=== PATIENT | female | born 1955 | race Caucasian/White ===

== ENCOUNTER → 2017-06-19 | Outpatient (CLI) | payer OTHER ==
[~2017-06-19] MED LIST: DICL1TAB5 PO
--- NOTE | 2017-06-30 09:30 | MAMMOGRAPHY REPORT ---
BILATERAL DIGITAL DIAGNOSTIC MAMMOGRAM TOMOSYNTHESIS WITH CAD AND TARGETED RIGHT ULTRASOUND: 06/19/20 17 CLINICAL HISTORY: The patient reports a palpable lump and associated pain in the right breast. She r eports a family history of breast cancer in her mother. TECHNIQUE: Breast tomosynthesis in addition to standard 2D mammography was performed. Current study was also evaluated with a Computer Aided Detection (CAD) system. Bilateral CC and MLO 2-D and tomosy nthesis images were obtained. COMPARISON: Comparison is made to exams dated: 02/20/2011 mammogram and 03/26/2012 mammogram - [facility]. BREAST COMPOSITION: There are scattered areas of fibroglandular density in both breasts. FINDINGS: A triangle marker bosch the site of the palpable lump in the right 12:00 breast. No suspic ious masses or other suspicious mammographic abnormalities are seen in this region. The remainder of both breasts are stable compared to prior exams, without suspicious masses, calcifications, or areas of architectural distortion noted. A few scattered bilateral benign-appearing calcifications are ag ain noted. A small benign intramammary lymph node within the left 3:00 breast is stable. Targeted ultrasound was performed of the area of the palpable lump and associated tenderness pointed out by the patient, in the right breast at approximately 1:00, centered around 6 cm from the nipple. Targeted ultrasound was also performed of the right 12:00 breast as well. Sonographically normal ti ssue is seen, without evidence of a mass or other suspicious sonographic abnormality. IMPRESSION: ACR BI-RADS CATEGORY 2: BENIGN, TARGETED ULTRASOUND ACR BI-RADS CATEGORY 2: BENIGN No suspicious mammographic or sonographic abnormality at the site of the palpable right breast lump a nd associated tenderness pointed out by the patient. There is no mammographic or targeted sonographi c evidence of malignancy. Recommend clinical follow-up for right breast lump/pain, and recommend rou aruna bilateral screening mammograms in one year. The patient has been verbally notified of the results. Approximately 10% of breast cancers are not detected with mammography. A negative mammographic report should not delay biopsy if a clinically suggestive mass is present. Brenda Chaney M.D. ah/:06/19/2017 14:12:24 Auriculotherapist: Constance MARCOS(Jaden)(M), [facility] letter sent: Normal 08/04 BI-RADS Code: ACR BI-RADS Category 2: Benign Ultrasound BI-RADS: ACR BI-RADS Category 2: Benign
== END | disposition home or self-care (01) ==
LOC: C.MAMM 13:40
PROVIDERS: ATTEND Nurse Practitioner Family
DX: N63.10 Unspecified lump in the right breast, unspecified quadrant (principal); N64.4 Mastodynia

== ENCOUNTER 2017-09-28 15:28 | Emergency (ER) | payer OTHER ==
[~2017-09-28] VITALS: Ht 165.1 cm; Wt 112.0 kg
[2017-09-28 15:40] VITALS: TEMP 37; Ht 165.1 cm; Wt 112.0 kg
[2017-09-28] MEDS ORDERED: ASPIRIN 81 MG CHEW PO STA (16:40)
[2017-09-28 16:47] VITALS: O2SAT 97
[2017-09-28] MEDS ORDERED: OPTIRAY 320 IV PRN (17:00)
[2017-09-28 17:20] LABS: BASO % 0.3 %; BASO ABS # 0.02 K/uL (0-0.2); EOS % 2.4 %; EOS ABS # 0.19 K/uL (0-0.5); HEMATOCRIT 43.3 % (37-47); HEMOGLOBIN 14.2 g/dL (12.0-16.0); IG# 0.03 K/uL (0.00-0.02); LYMPH % 24.8 %; LYMPH ABS # 1.98 K/uL (1.2-3.4); MEAN CELL VOLUME 91.7 fL (80-100); MEAN CORPUSCULAR HEMOGLOBIN 30.1 pg (25-34); MEAN CORPUSCULAR HGB CONC 32.8 g/dl (32-36); MEAN PLATELET VOLUME 11.2 fL (7.4-10.4); MONO % 6.5 %; MONO ABS # 0.52 K/uL (0.11-0.59); NEUT % 65.6 %; NEUT ABS # 5.26 K/uL (1.4-6.5); PLATELET COUNT 196 K/uL (130-400); RED CELL DISTRIBUTION WIDTH SD 43.8 fL (36.4-46.3)
--- NOTE | 2017-09-28 17:32 | DIAGNOSTIC IMAGING REPORT ---
CHEST ONE VIEW PORTABLE CLINICAL HISTORY: Atypical chest pain COMPARISON STUDY: 12/29/2012 FINDINGS: The heart is at the upper limits of normal in size. Hazy increased density at both lung bases, likely relates to overlying breast tissue. There is no lobar consolidation. There is no overt failure. There are no pleural effusions. Postsurgical changes involve the cervical spine[ IMPRESSION: AP portable study. No acute findings. Electronically signed by: Price Colindres M.D. 09/28/2017 5:30 PM Dictated Date/Time: 09/28/2017 5:30 PM
[2017-09-28 17:40] LABS: BLOOD UREA NITROGEN 21 mg/dl (7-18); CALCIUM 8.7 mg/dl (8.5-10.1); CARBON DIOXIDE 28 mmol/L (21-32); CREATININE 1.01 mg/dl (0.60-1.20); GLUCOSE 86 mg/dl (70-99); POTASSIUM 4.2 mmol/L (3.5-5.1); SODIUM 141 mmol/L (136-145)
--- NOTE | 2017-09-28 18:20 | DIAGNOSTIC IMAGING REPORT ---
ADDENDUM Impression #1 should read as follows: No evidence for pulmonary embolus. Electronically signed by: Forrest Gonzalez M.D. 09/28/2017 7:29 PM Dictated Date/Time: 09/28/2017 7:29 PM ORIGINAL REPORT CHEST CTA for PULMONARY ARTERIES CT DOSE: 677.83 mGy.cm HISTORY: Atypical chest pain. TECHNIQUE: Multiaxial CT images of the chest were performed following the intravenous administration of contrast to evaluate the pulmonary arteries. Maximal intensity projection images were also obtained. A dose lowering technique was utilized adhering to the principles of ALARA. COMPARISON STUDY: None. FINDINGS: The ascending thoracic aorta measures up to 3.9 x 3.6 cm in diameter. No evidence for an aortic dissection. Cholecystectomy. The visualized liver, spleen, adrenal glands, and kidneys are unremarkable. No mediastinal or hilar lymphadenopathy. The heart is normal in size. No pleural or pericardial effusions. Partially visualized cervical spinal fusion hardware. No fractures within the visualized osseous structures. No pneumothorax. The lungs are clear. No filling defects within the pulmonary arteries to suggest pulmonary embolus. IMPRESSION: 1. No evidence for pulmonary blood. 2. Borderline dilated ascending thoracic aorta measuring 3.9 x 3.6 cm in diameter. Electronically signed by: Forrest Gonzalez M.D. 09/28/2017 6:19 PM Dictated Date/Time: 09/28/2017 6:09 PM
[2017-09-28 18:28] LABS: PTT PATIENT 24.3 SECONDS (21.0-31.0)
[2017-09-28] MEDS ORDERED: DICL1GEL12 TD (18:28)
--- NOTE | 2017-09-28 19:30 | DIAGNOSTIC IMAGING REPORT ---
BILATERAL LOWER EXTREMITY VENOUS DOPPLER HISTORY: Elevated d-dimer. Atypical chest pain. COMPARISON STUDY: None. FINDINGS: There is normal compressibility, flow, and augmentation within the bilateral lower extremity deep venous systems. IMPRESSION: No DVT within the right or left lower extremity. Electronically signed by: Forrest Gonzalez M.D. 09/28/2017 7:29 PM Dictated Date/Time: 09/28/2017 7:28 PM
--- NOTE | 2017-09-28 21:05 | EMERGENCY ROOM VISIT NOTE ---
History Report prepared by Hugo: Nano Orozco Under the Supervision of: Dr. Castillo Hurt M.D. First contact with patient: 16:32 Chief Complaint: REFERRED BY DOCTOR Stated Complaint: POSSIBLE BLOOD CLOT, SENT BY DR RODRIGUEZ History of Present Illness The patient is a 62 year old female who presents to the Emergency Room with complaints of intermittent chest pain starting 3 weeks ago. She describes the pain as a spasm that lasts for a couple seconds to 3-4 minutes. The pain has occurred every day. The pain goes away on its own. She does not identify any triggers for the chest pain. The patient was sent to the ED today after "blood work indicated that she might have a blood clot". She currently does not have any chest pain. She has had some cough and left calf pain. She denies any hemoptysis, hematuria, hematochezia, or melena. Her father of an NE at age 51. She denies any recent travel or hormone use. Her blood pressure has been high recently. She has a history of arthritis. Patient states she is currently being seen by a termite control servicer and had a Holter monitor prescribed to her earlier this week. Source of History: patient Onset: 3 weeks ago Position: chest Quality: other (spasm) Timing: intermittent Associated Symptoms: + cough, No melena, No hematochezia, No urinary symptoms Note: Pt reports left calf pain. Review of Systems See HPI for pertinent positives and negatives. A total of ten systems were reviewed and were otherwise negative. Past Medical & Surgical Medical Problems: (1) Arthritis Family History NE (myocardial infarction) Social History Smoking Status: Never Smoker Marital Status: Occupation Status: disabled Current/Historical Medications Scheduled PRN Diclofenac Sodium (Topical) (Voltaren 1% Top Gel), 1 APPLN TD BID PRN for FLARE- [employer] Allergies Coded Allergies: No Known Allergies (Verified , 04/04/15) Physical Exam Vital Signs Date Time Temp Pulse Resp B/P (MAP) Pulse Ox O2 Delivery O2 Flow Rate FiO2 09/28/17 21:10 58 18 168/86 98 09/28/17 21:07 56 18 168/68 96 Room Air 09/28/17 19:31 58 20 154/79 97 Room Air 09/28/17 17:47 57 18 157/101 100 Room Air 09/28/17 17:11 58 16 173/92 99 Room Air 09/28/17 16:47 97 Room Air 09/28/17 16:39 58 09/28/17 16:36 98 Room Air 09/28/17 15:40 37.0 63 20 188/123 97 Room Air Physical Exam Physical Exam GENERAL: She is oriented to person, place, and time. She appears well- developed and well-nourished. She does not appear distressed. ____ HENT: Exam performed. Head: Normocephalic and atraumatic. Right Ear: External ear normal. No mastoid tenderness. Left Ear: External ear normal. No mastoid tenderness. Mouth/Throat: The oropharynx is clear and moist. No trismus in the jaw. No dental abscesses or uvula swelling. No oropharyngeal exudate or tonsillar abscesses. ____ EYES: Conjunctivae and EOM are normal. Pupils are equal, round, and reactive to light. Right eye exhibits no discharge. Left eye exhibits no discharge. No scleral icterus. ____ NECK: Normal range of motion. Neck supple. No JVD present. No spinous process tenderness present. No carotid bruit present. No rigidity. No tracheal deviation and normal range of motion present. No Brudzinski's sign and no Kernig 's sign noted. ____ CV: Normal rate, regular rhythm, normal heart sounds and intact distal pulses. There is no peripheral edema. Palpable radial pulses bue. Holter monitor in place. ____ PULM/CHEST: Effort normal and breath sounds normal. No respiratory distress. No stridor. She has no wheezes. She has no rales. Chest Wall: She exhibits no tenderness. ____ ABD: The abdomen is soft. Bowel sounds are normal. She has no distension. No mass is present. There is no tenderness. There is no rebound, no guarding, no Paz's sign and no tenderness at McBurney's point. Rovsig negative MUSC/SKEL: Normal range of motion. There is no peripheral edema or deformity. Pain on palpation of her left calf posteriorly and popliteal area. LYMPH: No cervical adenopathy. ____ NEURO: She is alert and oriented to person, place, and time. She has normal strength. No cranial nerve deficit or sensory deficit. Coordination and gait normal. GCS eye subscore is 4. GCS verbal subscore is 5. GCS motor subscore is 6. Cerebellar tests wnl. ____ SKIN: Skin is warm and dry. She is not diaphoretic. ____ PSYCH: She has a normal mood and affect. Her behavior is normal. Judgment and thought content normal. ____ Medical Decision & Procedures ER Provider Diagnostic Interpretation: Radiology results as stated below per my review and radiologist interpretation: CHEST ONE VIEW PORTABLE CLINICAL HISTORY: Atypical chest pain COMPARISON STUDY: 12/29/2012 FINDINGS: The heart is at the upper limits of normal in size. Hazy increased density at both lung bases, likely relates to overlying breast tissue. There is no lobar consolidation. There is no overt failure. There are no pleural effusions. Postsurgical changes involve the cervical spine[ IMPRESSION: AP portable study. No acute findings. Electronically signed by: Price Colindres M.D. 09/28/2017 5:30 PM Dictated Date/Time: 09/28/2017 5:30 PM ADDENDUM Impression #1 should read as follows: No evidence for pulmonary embolus. Electronically signed by: Forrest Gonzalez M.D. 09/28/2017 7:29 PM Dictated Date/Time: 09/28/2017 7:29 PM ORIGINAL REPORT CHEST CTA for PULMONARY ARTERIES CT DOSE: 677.83 mGy.cm HISTORY: Atypical chest pain. TECHNIQUE: Multiaxial CT images of the chest were performed following the intravenous administration of contrast to evaluate the pulmonary arteries. Maximal intensity projection images were also obtained. A dose lowering technique was utilized adhering to the principles of ALARA. COMPARISON STUDY: None. FINDINGS: The ascending thoracic aorta measures up to 3.9 x 3.6 cm in diameter. No evidence for an aortic dissection. Cholecystectomy. The visualized liver, spleen, adrenal glands, and kidneys are unremarkable. No mediastinal or hilar lymphadenopathy. The heart is normal in size. No pleural or pericardial effusions. Partially visualized cervical spinal fusion hardware. No fractures within the visualized osseous structures. No pneumothorax. The lungs are clear. No filling defects within the pulmonary arteries to suggest pulmonary embolus. IMPRESSION: 1. No evidence for pulmonary blood. 2. Borderline dilated ascending thoracic aorta measuring 3.9 x 3.6 cm in diameter. Electronically signed by: Forrest Gonzalez M.D. 09/28/2017 6:19 PM Dictated Date/Time: 09/28/2017 6:09 PM BILATERAL LOWER EXTREMITY VENOUS DOPPLER HISTORY: Elevated d-dimer. Atypical chest pain. COMPARISON STUDY: None. FINDINGS: There is normal compressibility, flow, and augmentation within the bilateral lower extremity deep venous systems. IMPRESSION: No DVT within the right or left lower extremity. Electronically signed by: Forrest Gonzalez M.D. 09/28/2017 7:29 PM Dictated Date/Time: 09/28/2017 7:28 PM Laboratory Results 09/28/17 16:55 Red Blood Count 4.72, Mean Corpuscular Volume 91.7, Mean Corpuscular Hemoglobin 30.1, Mean Corpuscular Hemoglobin Concent 32.8, Mean Platelet Volume 11.2, Neutrophils (%) (Auto) 65.6, Lymphocytes (%) (Auto) 24.8, Monocytes (%) (Auto) 6.5, Eosinophils (%) (Auto) 2.4, Basophils (%) (Auto) 0.3, Neutrophils # (Auto) 5.26, Lymphocytes # (Auto) 1.98, Monocytes # (Auto) 0.52, Eosinophils # (Auto) 0.19, Basophils # (Auto) 0.02 09/28/17 16:55 Test 09/28/17 16:55 09/28/17 17:42 09/28/17 19:53 White Blood Count 8.00 K/uL (4.8-10.8) Red Blood Count 4.72 M/uL (4.2-5.4) Hemoglobin 14.2 g/dL (12.0-16.0) Hematocrit 43.3 % (37-47) Mean Corpuscular Volume 91.7 fL (80-100) Mean Corpuscular Hemoglobin 30.1 pg (25-34) Mean Corpuscular Hemoglobin Concent 32.8 g/dl (32-36) Platelet Count 196 K/uL (130-400) Mean Platelet Volume 11.2 fL (7.4-10.4) Neutrophils (%) (Auto) 65.6 % Lymphocytes (%) (Auto) 24.8 % Monocytes (%) (Auto) 6.5 % Eosinophils (%) (Auto) 2.4 % Basophils (%) (Auto) 0.3 % Neutrophils # (Auto) 5.26 K/uL (1.4-6.5) Lymphocytes # (Auto) 1.98 K/uL (1.2-3.4) Monocytes # (Auto) 0.52 K/uL (0.11-0.59) Eosinophils # (Auto) 0.19 K/uL (0-0.5) Basophils # (Auto) 0.02 K/uL (0-0.2) RDW Standard Deviation 43.8 fL (36.4-46.3) RDW Coefficient of Variation 13.0 % (11.5-14.5) Immature Granulocyte % (Auto) 0.4 % Immature Granulocyte # (Auto) 0.03 K/uL (0.00-0.02) Anion Gap 5.0 mmol/L (3-11) Est Creatinine Clear Calc Drug Dose 70.2 ml/min Estimated GFR () 68.1 Estimated GFR (Non- 58.8 BUN/Creatinine Ratio 20.3 (10-20) Calcium Level 8.7 mg/dl (8.5-10.1) Chemistry Specimen Hemolysis Prothrombin Time 10.2 SECONDS (9.0-12.0) Prothromb Time International Ratio 1.0 (0.9-1.1) Activated Partial Thromboplast Time 24.3 SECONDS (21.0-31.0) Partial Thromboplastin Ratio 0.9 Troponin I < 0.015 ng/ml (0-0.045) Laboratory results reviewed by me Medications Administered Medications (Trade) Dose Ordered Sig/Stuart Route Start Time Stop Time Status Last Admin Dose Admin Aspirin (Aspirin Chew) 324 mg NOW STAT PO 09/28/17 16:40 09/28/17 16:42 DC 09/28/17 17:11 324 MG ECG Per My Interpretation Indication: chest pain Rate (beats per minute): 96 Rhythm: sinus rhythm Findings: other (IN, QRS, QTc wnl, baseline wander, no ST elevation or ST depression) ED Course 163: The patient was evaluated in room A11B. A complete history and physical exam was performed. 1945: VSS. Pt not reporting any chest pain. CT and US wnl. First troponin wnl. I explained to the family we will repeat troponin and if wnl discharge home for follow up with PCP. Pt and family at bedside in agreement with the plan. 2044: DISCHARGE - Plan of care discussed with family and questions answered. The family was given both verbal and printed discharge instructions. The family verbalized understanding and ability to comply. The family is to seek outpatient follow up as noted in the discharge instructions. The family verbalized understanding and ability to comply. The family is discharged in stable condition. The family was instructed to return for worsening symptoms. Medical Decision VSS. Pt not reporting any chest pain. CT and US wnl. Serial troponin wnl. I explained to the family we will repeat troponin and if wnl discharge home for follow up with PCP. Pt and family at bedside in agreement with the plan. Medication Reconcilliation Current Medication List: was personally reviewed by me Blood Pressure Screening Patient's blood pressure: Elevated blood pressure Blood pressure disposition: Referred to PCP Impression Primary Impression: Chest pain Scribe Attestation The scribe's documentation has been prepared under my direction and personally reviewed by me in its entirety. I confirm that the note above accurately reflects all work, treatment, procedures, and medical decision making performed by me. The chart was completed utilizing [employer] Speech voice recognition software. Grammatical errors, random word insertions, pronoun errors, and incomplete sentences are an occasional consequence of this system due to software limitations, ambient noise, and hardware issues. Any formal questions or concerns about the content, text, or information contained within the body of this dictation should be directly addressed to the physician for clarification. Departure Information Dispostion Home / Self-Care Referrals Alma Christian (PCP) Forms HOME CARE DOCUMENTATION FORM, IMPORTANT VISIT INFORMATION, WORK / SCHOOL INSTRUCTIONS Patient Instructions Chest Pain - [facility], [facility] Problem Qualifiers Primary Impression: Chest pain Chest pain type: unspecified Qualified Codes: R07.9 - Chest pain, unspecified
[2017-09-28 21:10] VITALS: BP 168/86; PULSE 58; O2SAT 98
== END 2017-09-28 21:12 | disposition home or self-care (01) ==
LOC: C.EDB 15:30 → C.EDA 21:12
DX: R07.9 Chest pain, unspecified (principal); M19.90 Unspecified osteoarthritis, unspecified site; Z82.49 Family history of ischemic heart disease and other diseases of the circulatory system

== ENCOUNTER 2017-12-09 11:52 | Observation (INO) | payer OTHER ==
[~2017-12-09] VITALS: Ht 165.1 cm; Wt 107.7 kg
[~2017-12-09 11:52] MED LIST changes: +DICL1GEL12 TD; -DICL1TAB5 PO
[2017-12-09] MEDS ORDERED: ASPIRIN 81 MG CHEW PO STA (12:05)
[2017-12-09] MEDS ORDERED: NITROGLYCERIN 0.4 MG SL PER TAB CHARGE SL PRN ×2 (12:15→14:45)
[2017-12-09 12:35] LABS: BASO % 0.3 %; BASO ABS # 0.02 K/uL (0-0.2); EOS % 1.8 %; EOS ABS # 0.14 K/uL (0-0.5); HEMATOCRIT 42.7 % (37-47); HEMOGLOBIN 14.3 g/dL (12.0-16.0); IG# 0.01 K/uL (0.00-0.02); LYMPH % 17.8 %; LYMPH ABS # 1.38 K/uL (1.2-3.4); MEAN CELL VOLUME 90.3 fL (80-100); MEAN CORPUSCULAR HEMOGLOBIN 30.2 pg (25-34); MEAN CORPUSCULAR HGB CONC 33.5 g/dl (32-36); MEAN PLATELET VOLUME 10.7 fL (7.4-10.4); MONO % 5.3 %; MONO ABS # 0.41 K/uL (0.11-0.59); NEUT % 74.7 %; NEUT ABS # 5.78 K/uL (1.4-6.5); PLATELET COUNT 184 K/uL (130-400); RED CELL DISTRIBUTION WIDTH SD 42.8 fL (36.4-46.3); WHITE BLOOD COUNT 7.74 K/uL (4.8-10.8)
--- NOTE | 2017-12-09 12:52 | DIAGNOSTIC IMAGING REPORT ---
CHEST ONE VIEW PORTABLE HISTORY: Atypical chest pain. COMPARISON: Chest 09/28/2017. FINDINGS: The heart remains mildly enlarged. The lungs are clear. No pleural effusions. No pneumothorax. Cervical spinal fusion hardware is noted. IMPRESSION: Stable mild cardiomegaly. No acute process within the chest. Electronically signed by: Forrest Gonzalez M.D. 12/09/2017 12:50 PM Dictated Date/Time: 12/09/2017 12:49 PM
[2017-12-09 12:55] LABS: BLOOD UREA NITROGEN 18 mg/dl (7-18); CALCIUM 9.2 mg/dl (8.5-10.1); CARBON DIOXIDE 26 mmol/L (21-32); CREATININE 0.99 mg/dl (0.60-1.20); GLUCOSE 113 mg/dl (70-99); POTASSIUM 3.9 mmol/L (3.5-5.1); SODIUM 141 mmol/L (136-145)
[2017-12-09] MEDS ORDERED: FRS/40 PO (13:11)
[2017-12-09] MEDS ORDERED: LSN5 PO (13:11)
[2017-12-09] MEDS ORDERED: ACETAMINOPHEN 325 MG TAB PO PRN (14:45)
[2017-12-09] MEDS ORDERED: POLYETHYLENE (MIRALAX) 17 GM PACK PO PRN (14:45)
[2017-12-09] MEDS ORDERED: MAGNESIUM HYDROXIDE SUSP 30 ML UDC PO PRN (14:45)
[2017-12-09] MEDS ORDERED: ONDANSETRON INJ 2 MG/ML 2 ML VIAL IV PRN (14:45)
[2017-12-09] MEDS ORDERED: ALUMINUM/MAGNESIUM/SIMETH (MAALOX MAX) 30 ML UDC PO PRN (14:45)
--- NOTE | 2017-12-09 14:47 | History and Physical ---
History & Physical Date & Time of Service: December 09, 2017 at 14:43 Chief Complaint: Chest Pain Primary Care Physician: Alma Christian History of Present Illness Source: patient Ms. Ann is a 62 y/o female with PMHx of HTN who presents to the ED c/o chest pain. Patient reports that she was living some heavy objects this morning at work but felt fine at that time. She states she was prepping food/drinks while working at [employer] when she developed mid-sternal pain. She states this pain has occurred before and comes and goes. Today the pain was more constant and she had associated numbness down the L arm, diaphoresis, and SOB. She states she never had these other symptoms with her previous CP. She states the pain resolved with NTG given in ED but is now beginning to come back. She states the pain is a heaviness like someone is pushing on her chest. She denies personal H/ O heart issues but was told she had a "leaky valve" diagnosed on echo by Dr. Coffman approx. 2 months ago. She states she had this done for "fluttering" in her chest. She states she never had a stress test before. She has a history of HTN that she has tried multiple medications for that were hurting her kidneys. She states this was a water pill/BP medication. She is now on Lisinopril and Lasix. She was a previous smoker but not currently. She thinks her cholesterol is good. Her father of a [facility] at age 53 suddenly. Her mother at 79 from an [facility] and had a history of CABG. Past Medical/Surgical History (1) Arthritis (2) HTN (hypertension) (3) "Leaky Valve" (4) S/P Cholecystectomy (5) S/P x 2 (6) S/P Appendectomy (7) S/P Cervical Disc Surgery Family History [facility] (my[facility] infarction) FATHER MOTHER Social History Smoking Status: Former Smoker Marital Status: Occupational Status: employed Immunizations History of Influenza Vaccine: N/A History of Tetanus Vaccine?: Unknown History of Pneumococcal: Yes History of Hepatitis B Vaccine: Unknown Allergies Coded Allergies: No Known Allergies (Verified , 12/09/17) Home Medications Scheduled Furosemide (Lasix), 40 MG PO DAILY Lisinopril (Lisinopril), 5 MG PO DAILY Scheduled PRN Diclofenac Sodium (Topical) (Voltaren 1% Top Gel), 1 APPLN TD BID PRN for FLARE- [employer] Review of Systems Constitutional: + sweats, No fever, No chills ENT: No nasal symptoms, No sore throat Respiratory: + shortness of breath (resolved), No cough Cardiovascular: + chest pain (resolved - wax and wanes), No orthopnea Abdomen: No pain, No nausea, No vomiting, No diarrhea, No constipation Musculoskeletal: No swelling, No calf pain Genitourinary - Female: No dysuria Hematologic / Lymphatic: No abnormal bleeding/bruising Integumentary: No rash Physical Exam Vital Signs Date Time Temp Pulse Resp B/P (MAP) Pulse Ox O2 Delivery O2 Flow Rate FiO2 12/09/17 14:00 52 18 161/74 99 Room Air 12/09/17 13:40 99 12/09/17 13:06 54 18 141/69 97 Room Air 12/09/17 13:00 141/69 12/09/17 12:40 66 17 142/80 96 12/09/17 12:35 66 18 142/80 97 Room Air 12/09/17 12:30 61 18 160/92 98 Room Air 12/09/17 12:23 97 Room Air 12/09/17 12:23 54 12/09/17 12:22 97 Room Air 12/09/17 12:01 142/69 12/09/17 11:53 36.6 62 18 166/84 95 Room Air General Appearance: WD/WN, no apparent distress Head: normocephalic, atraumatic Eyes: sclerae normal ENT: hearing grossly normal Neck: supple, no JVD, trachea midline Respiratory/Chest: lungs clear, normal breath sounds, no respiratory distress, no accessory muscle use, + pertinent finding (no tenderness to palpation of anterior chest wall) Cardiovascular: regular rate, rhythm, no gallop, no murmur Abdomen/GI: normal bowel sounds, non tender, soft Back: normal inspection Extremities/Musculoskelatal: no pedal edema Neurologic/Psych: alert, oriented x 3 Skin: normal color, warm/dry Diagnostics Laboratory Results Results Past 24 Hours Test 12/09/17 12:17 Range/Units White Blood Count 7.74 4.8-10.8 K/uL Red Blood Count 4.73 4.2-5.4 M/uL Hemoglobin 14.3 12.0-16.0 g/dL Hematocrit 42.7 37-47 % Mean Corpuscular Volume 90.3 80-100 fL Mean Corpuscular Hemoglobin 30.2 25-34 pg Mean Corpuscular Hemoglobin Concent 33.5 32-36 g/dl Platelet Count 184 130-400 K/uL Mean Platelet Volume 10.7 7.4-10.4 fL Neutrophils (%) (Auto) 74.7 % Lymphocytes (%) (Auto) 17.8 % Monocytes (%) (Auto) 5.3 % Eosinophils (%) (Auto) 1.8 % Basophils (%) (Auto) 0.3 % Neutrophils # (Auto) 5.78 1.4-6.5 K/uL Lymphocytes # (Auto) 1.38 1.2-3.4 K/uL Monocytes # (Auto) 0.41 0.11-0.59 K/uL Eosinophils # (Auto) 0.14 0-0.5 K/uL Basophils # (Auto) 0.02 0-0.2 K/uL RDW Standard Deviation 42.8 36.4-46.3 fL RDW Coefficient of Variation 13.0 11.5-14.5 % Immature Granulocyte % (Auto) 0.1 % Immature Granulocyte # (Auto) 0.01 0.00-0.02 K/uL Sodium Level 141 136-145 mmol/L Potassium Level 3.9 3.5-5.1 mmol/L Chloride Level 111 98-107 mmol/L Carbon Dioxide Level 26 21-32 mmol/L Anion Gap 4.0 3-11 mmol/L Blood Urea Nitrogen 18 7-18 mg/dl Creatinine 0.99 0.60-1.20 mg/dl Est Creatinine Clear Calc Drug Dose 70.4 ml/min Estimated GFR () 69.8 Estimated GFR (Non- 60.2 BUN/Creatinine Ratio 18.3 10-20 Random Glucose 113 70-99 mg/dl Calcium Level 9.2 8.5-10.1 mg/dl Troponin I < 0.015 0-0.045 ng/ml Diagnostic Radiology CHEST ONE VIEW PORTABLE HISTORY: Atypical chest pain. COMPARISON: Chest 09/28/2017. FINDINGS: The heart remains mildly enlarged. The lungs are clear. No pleural effusions. No pneumothorax. Cervical spinal fusion hardware is noted. IMPRESSION: Stable mild cardiomegaly. No acute process within the chest. EKG Sinus bradycardia Minimal voltage criteria for LVH, may be normal variant Borderline ECG When compared with ECG of 28-SEP-2017 15:42, No significant change was found Confirmed by NILAL LANDAVERDE ([id number]) on 12/09/2017 1:11:02 PM Impression Assessment and Plan Ms. Ann is a 62 y/o female with PMHx of HTN who presents to the ED c/o chest pain. Chest Pain: - Currently CP free after administration of NTG; pain was not reproducible on examination - risk factors of previous smoker, obesity, HTN, + family history - Admit to telemetry for rhythm monitoring and serial cardiac enzymes - initial trops negative - Obtain lipid panel in AM - ASA 81 mg daily; NTG SL PRN - Dobutamin stress test - patient feels she could not do treadmill testing due to B/L knee replacement (1 R and 2 L) HTN: Uncontrolled - BP largely in 140s/80 but was up in the 180s during examination - could be situational given her report that they are better at home - States they have tried a couple BP meds for her and the "hurt her kidneys" - likely had some sort of HCTZ/ACEI-ARB combo prior - Continue Lasix 40 mg daily and Lisinopril DVT Prophylaxis: Heparin Code Status: FULL RESUSCITATION Disposition: Likely home tomorrow Resident Physician Supervision Note: I was present with Noreen CALLE during the history and exam. I discussed the case with the resident and agree with the findings and plan as documented in the note. Any exceptions or clarifications are listed here: 62 y/o F Hx HTN, obese, possibly mitral regurge - presenting with intermittent central CP. Denies previous history of heart disease. OE AAO x 3 S1,2 R CTAB NT, ND No CCE P: Risk factors of HTN, weight, age and a strong family Hx are present Pt will be evaluated for CAD - a stress test will be scheduled following serial troponins - a tredmill echo may be adequate She is asymptomatic on admission - initial trop and EKG do not support active ischemia Documented By: Hector Díaz Resuscitation Status VTE Prophylaxis Will order VTE Prophylaxis: Yes
[2017-12-09 15:25] VITALS: O2SAT 99
[2017-12-09 15:37] VITALS: BP 150/86; PULSE 56; TEMP 36.7; Ht 165.1 cm; Wt 107.7 kg
[2017-12-09 15:47] VITALS: BP 105/57; PULSE 105; TEMP 36.6; O2SAT 95
[2017-12-09 16:00] VITALS: BP 150/86; PULSE 56; TEMP 36.7; O2SAT 95
--- NOTE | 2017-12-09 16:08 | EMERGENCY ROOM VISIT NOTE ---
History Report prepared by Hugo: Gino Masters Under the Supervision of: Dr. Kirk Gilliam D.O. First contact with patient: 11:58 Chief Complaint: CHEST PAIN Stated Complaint: CHEST PAIN History of Present Illness The patient is a 62 year old female who presents to the Emergency Room with complaints of constant chest pain beginning one hour ago. She describes her pain as a feeling of "pressure". The patient also complains of left arm numbness , diaphoresis, and SOB. She has a history of similar pain, but no source was identified at the time. Her pain is currently present. The patient was at work at [employer] when her pain began prepping drinks. She notes that she was lifting and moving some heavy objects at work today. She has had no recent stress tests. Pt denies headache, change in vision, fevers, nausea, vomiting, diarrhea , pain with urination, and melena. She has no known problems with her aorta. Source of History: patient Onset: One hour ago Position: chest Quality: pressure Timing: constant Associated Symptoms: + diaphoresis, + SOB, + numbness (left arm), No fevers , No headache, No nausea, No vomiting, No melena, No diarrhea, No urinary symptoms Review of Systems See HPI for pertinent positives & negatives. A total of 10 systems reviewed and were otherwise negative. Past Medical & Surgical Medical Problems: (1) Arthritis (2) Chest Pain (3) HTN (hypertension) Family History [place] (myocardial infarction) Social History Smoking Status: Former Smoker Marital Status: Occupation Status: disabled Current/Historical Medications Scheduled Furosemide (Lasix), 40 MG PO DAILY Lisinopril (Lisinopril), 5 MG PO DAILY Scheduled PRN Diclofenac Sodium (Topical) (Voltaren 1% Top Gel), 1 APPLN TD BID PRN for FLARE- UPS Allergies Coded Allergies: No Known Allergies (Verified , 12/09/17) Physical Exam Vital Signs Date Time Temp Pulse Resp B/P (MAP) Pulse Ox O2 Delivery O2 Flow Rate FiO2 12/09/17 14:00 52 18 161/74 99 Room Air 12/09/17 13:40 99 12/09/17 13:06 54 18 141/69 97 Room Air 12/09/17 13:00 141/69 12/09/17 12:40 66 17 142/80 96 12/09/17 12:35 66 18 142/80 97 Room Air 12/09/17 12:30 61 18 160/92 98 Room Air 12/09/17 12:23 97 Room Air 12/09/17 12:23 54 12/09/17 12:22 97 Room Air 12/09/17 12:01 142/69 12/09/17 11:53 36.6 62 18 166/84 95 Room Air Physical Exam GENERAL: Sitting up in bed, disheveled, no distress, non-toxic EYE EXAM: normal conjunctiva. OROPHARYNX: no exudate, no erythema, lips, buccal mucosa, and tongue normal and mucous membranes are moist NECK: supple, no nuchal rigidity, no adenopathy, non-tender LUNGS: Clear to auscultation. Normal chest wall mechanics HEART: no murmurs, S1 normal and S2 normal ABDOMEN: abdomen soft, non-tender, normo-active bowel sounds, no masses, no rebound or guarding. BACK: Back is symmetrical on inspection and there is no deformity, no midline tenderness, no CVA tenderness. SKIN: no rashes and no bruising UPPER EXTREMITIES: upper extremities are grossly normal. LOWER EXTREMITIES: No pitting edema. NEURO EXAM: Normal sensorium, cranial nerves II-XII grossly intact, normal speech, no gross weakness of arms, no gross weakness of legs. Medical Decision & Procedures ER Provider Diagnostic Interpretation: Radiology results as stated below per my review and the radiologist's interpretation: CHEST ONE VIEW PORTABLE FINDINGS: The heart remains mildly enlarged. The lungs are clear. No pleural effusions. No pneumothorax. Cervical spinal fusion hardware is noted. IMPRESSION: Stable mild cardiomegaly. No acute process within the chest. Electronically signed by: Forrest Gonzalez M.D. 12/09/2017 12:50 PM Laboratory Results 12/09/17 12:17 Red Blood Count 4.73, Mean Corpuscular Volume 90.3, Mean Corpuscular Hemoglobin 30.2, Mean Corpuscular Hemoglobin Concent 33.5, Mean Platelet Volume 10.7, Neutrophils (%) (Auto) 74.7, Lymphocytes (%) (Auto) 17.8, Monocytes (%) (Auto) 5.3, Eosinophils (%) (Auto) 1.8, Basophils (%) (Auto) 0.3, Neutrophils # (Auto) 5.78, Lymphocytes # (Auto) 1.38, Monocytes # (Auto) 0.41, Eosinophils # (Auto) 0.14, Basophils # (Auto) 0.02 12/09/17 12:17 Test 12/09/17 12:17 White Blood Count 7.74 K/uL (4.8-10.8) Red Blood Count 4.73 M/uL (4.2-5.4) Hemoglobin 14.3 g/dL (12.0-16.0) Hematocrit 42.7 % (37-47) Mean Corpuscular Volume 90.3 fL (80-100) Mean Corpuscular Hemoglobin 30.2 pg (25-34) Mean Corpuscular Hemoglobin Concent 33.5 g/dl (32-36) Platelet Count 184 K/uL (130-400) Mean Platelet Volume 10.7 fL (7.4-10.4) Neutrophils (%) (Auto) 74.7 % Lymphocytes (%) (Auto) 17.8 % Monocytes (%) (Auto) 5.3 % Eosinophils (%) (Auto) 1.8 % Basophils (%) (Auto) 0.3 % Neutrophils # (Auto) 5.78 K/uL (1.4-6.5) Lymphocytes # (Auto) 1.38 K/uL (1.2-3.4) Monocytes # (Auto) 0.41 K/uL (0.11-0.59) Eosinophils # (Auto) 0.14 K/uL (0-0.5) Basophils # (Auto) 0.02 K/uL (0-0.2) RDW Standard Deviation 42.8 fL (36.4-46.3) RDW Coefficient of Variation 13.0 % (11.5-14.5) Immature Granulocyte % (Auto) 0.1 % Immature Granulocyte # (Auto) 0.01 K/uL (0.00-0.02) Anion Gap 4.0 mmol/L (3-11) Est Creatinine Clear Calc Drug Dose 70.4 ml/min Estimated GFR () 69.8 Estimated GFR (Non- 60.2 BUN/Creatinine Ratio 18.3 (10-20) Calcium Level 9.2 mg/dl (8.5-10.1) Troponin I < 0.015 ng/ml (0-0.045) Laboratory results per my review. Medications Administered Medications (Trade) Dose Ordered Sig/Stuart Route Start Time Stop Time Status Last Admin Dose Admin Aspirin (Aspirin Chew) 324 mg NOW STAT PO 12/09/17 12:05 12/09/17 12:07 DC 12/09/17 12:35 324 MG Nitroglycerin (Nitrostat Tab) 0.4 mg Q5M PRN SL 12/09/17 12:15 12/09/17 16:04 DC 12/09/17 12:35 0.4 MG ECG Per My Interpretation Indication: chest pain Rate (beats per minute): 54 Rhythm: sinus bradycardia Findings: other (Normal axis. No PVCs. ) ED Course ED COURSE: Vital signs were reviewed and showed hypertension. The patients medical record was reviewed The above diagnostic studies were performed and reviewed. ED treatments and interventions as stated above. 1200: The patient was evaluated in room C8. A complete history and physical examination was performed. 1205: Ordered Aspirin Chew 324 mg PO/ 1215: Ordered Nitrostat Tab 0.4 mg SL. 1303: Upon reevaluation, the patient is resting comfortably. Her chest pain has completely resolved. I discussed my findings with the patient and she understands and agrees with the treatment plan. Based on the patients age, coexisting illnesses, exam and lab findings the decision to treat as an inpatient was made. The patient remained stable while under my care. The patient will be evaluated for further management. Medical Decision Differential diagnoses includes but is not limited to acute coronary syndrome, myocardial infarction, pericarditis, pulmonary embolus, aortic dissection, pneumonia, pneumothorax, musculoskeletal, shingles, esophageal. Patient is a 62-year-old female who presents to ER for chest pain associated with shortness of breath and left arm pain. Patient has a history of hypertension and is an ex-smoker. Symptoms completely resolved with nitroglycerin. She was also given aspirin. Strong family history of MIs. CBC along with BMP was unremarkable. Troponin was negative. EKG was nondiagnostic. Chest x-ray unremarkable. Patient was updated at bedside. Discussed with internal medicine and patient will be observed overnight. Medication Reconcilliation Current Medication List: was personally reviewed by me Blood Pressure Screening Patient's blood pressure: Elevated blood pressure Blood pressure disposition: Elevated BP felt to be situational Consults Time Called: 1304 Consulting Physician: Dr. Díaz - [facility] [place] Hospitalist Returned Call: 1315 Dr. Díaz was made aware of the patient's case. [facility] for further management. Impression Primary Impression: Precordial chest pain Scribe Attestation The scribe's documentation has been prepared under my direction and personally reviewed by me in its entirety. I confirm that the note above accurately reflects all work, treatment, procedures, and medical decision making performed by me. Departure Information Dispostion Being Evaluated By Hospitalist Referrals Alma Christian (PCP) Patient Instructions My [facility]
[2017-12-09] MEDS ORDERED: IV FLUIDS COMPLETED PRN (17:00)
[2017-12-09] MEDS ORDERED: MoRPHine SULFATE 4 MG/ML 1 ML CARP\\VIAL IV PRN (19:00)
[2017-12-09 20:31] VITALS: BP 123/65; PULSE 50; TEMP 36.7; O2SAT 97
[2017-12-09] MEDS: HEPARIN SOD 5000 UNIT/0.5 ML CARP SQ SCH (21:03)
[2017-12-09 22:22] VITALS: BP 114/66; PULSE 54; TEMP 36.6; O2SAT 97
[2017-12-10] MEDS: HEPARIN SOD 5000 UNIT/0.5 ML CARP SQ SCH ×2 (06:05→13:37)
[2017-12-10 07:09] VITALS: BP 190/75; PULSE 79; TEMP 36.7; O2SAT 92
[2017-12-10 07:39] VITALS: BP 124/69; PULSE 46; TEMP 36.6; O2SAT 96
[2017-12-10 07:49] LABS: HEMATOCRIT 41.6 % (37-47); HEMOGLOBIN 13.9 g/dL (12.0-16.0); MEAN CELL VOLUME 90.4 fL (80-100); MEAN CORPUSCULAR HEMOGLOBIN 30.2 pg (25-34); MEAN CORPUSCULAR HGB CONC 33.4 g/dl (32-36); MEAN PLATELET VOLUME 10.8 fL (7.4-10.4); PLATELET COUNT 165 K/uL (130-400); RED CELL DISTRIBUTION WIDTH SD 42.6 fL (36.4-46.3); WHITE BLOOD COUNT 5.25 K/uL (4.8-10.8)
[2017-12-10 08:15] LABS: CALCIUM 8.5 mg/dl (8.5-10.1); CREATININE 0.76 mg/dl (0.60-1.20); POTASSIUM 3.9 mmol/L (3.5-5.1)
[2017-12-10] MEDS ORDERED: DOBUTamine HCL 12.5 MG/ML 20 ML VIAL ONE (08:16)
[2017-12-10] MEDS ORDERED: METOPROLOL TARTRATE 1 MG/ML VIAL ONE ×2 (08:16→08:17)
[2017-12-10] MEDS ORDERED: ATROPINE SULFATE 0.1 MG/ML 5ML SYR ONE ×2 (08:16→08:17)
[2017-12-10] MEDS ORDERED: ASPIRIN 81 MG ECTAB PO SCH (09:00)
[2017-12-10] MEDS ORDERED: LISINOPRIL 5 MG TAB PO SCH (09:00)
[2017-12-10] MEDS ORDERED: FUROSEMIDE 40 MG TAB PO SCH (09:00)
[2017-12-10] MEDS ORDERED: PERFLUTREN LIPID MICROSPHERE (DEFINITY) IV ONE (09:15)
[2017-12-10 11:26] VITALS: BP 128/80; PULSE 47; TEMP 36.9; O2SAT 97
--- NOTE | 2017-12-10 15:16 | DOBUTAMINE ECHO ---
*NOTICE TO RECEIVING REPUBLICAN AGENCY This information is strictly Confidential and protected under [place] law. [place] law prohibits you from making any further disclosure of this information unless further disclosure is expressly permitted by the written consent of the person to whom it pertains or is authorized by law. A general authorization for the release of medical or other information is not sufficient for this purpose. Hospital accepts no responsibility if the information is made available to any other person, INCLUDING THE PATIENT. Interpretation Summary * Name: PARVIZ MILLS Study Date: 12/10/2017 08:13 AM BP: 161/74 mmHg * Patient Location: [facility] HR: 49 * : 1955 (M/d/yyyy) Gender: Female Height: 65 in * Age: 62 yrs Ethnicity: [place] Weight: 239 lb * Ordering Physician: Noreen Hilton * Performed By: Kasia Rich RDCS * * Reason For Study: CHEST PAIN * BSA: 2.1 m2 * -- Conclusions -- * There is mild asymmetric left ventricular hypertrophy. * Left ventricular systolic function is normal. * Right ventricular systolic pressure is normal. * Diagnostic dobutamine echocardiogram without evidence of inducible ischemia Procedure Details * DOBUTAMINE ECHO, CPT#80030 * ECHO DOPPLER, CPT #34709 * ECHO COLOR FLOW, CPT #[id number] * The study was technically difficult with many images being suboptimal in quality. * A contrast injection of Definity was performed to improve assessment of LV function. * Contrast was injected into an intravenous site in the left arm. * One vial of Definity ultrasound contrast was diluted in normal saline to a total volume of 10 ml. A total of '6' ml of solution was administered during imaging. * Lot # [id number] of Definity utilized for procedure. * Expiration date 11/19. * The attending nurse who injected the contrast agent was APPLE DOW RN. Left Ventricular Findings with Stress * Diagnostic dobutamine echocardiogram without evidence of inducible ischemia Left Ventricle * The left ventricle is normal in size. * There is mild asymmetric left ventricular hypertrophy. * Ejection Fraction = 60-65%. * Left ventricular systolic function is normal. * The left ventricular wall motion is normal at rest. Right Ventricle * The right ventricle is normal in size and function. Atria * The left atrial size is normal. * Right atrial size is normal. Mitral Valve * The mitral valve is grossly normal. * Significant mitral regurgitation is absent. Tricuspid Valve * The tricuspid valve is not well visualized, but is grossly normal. * There is mild tricuspid regurgitation. * Right ventricular systolic pressure is normal. Aortic Valve * The aortic valve is not well visualized. * No hemodynamically significant valvular aortic stenosis. * There is no significant aortic regurgitation. Pulmonic Valve * The pulmonic valve is not well visualized. Pericardium * There is no pericardial effusion. Stress Parameters * Normal baseline electrocardiogram. * Significant ST or T-wave changes with peak dobutamine infusion however there was development of a wide complex rhythm which appeared to be a rate-related bundle branch block * Rest heart rate was '48' BPM. * Rest blood pressure was '150-72' * Maximum heart rate achieved was 142 bpm. * Maximum heart rate was 91 % of maximum age-predicted heart rate. * Maximum blood pressure was '187/80' * Maximum Dobutamine infusion rate was '50' mcg/kg/min. * A total of 0.5 mg of intravenous Atropine was used to supplement Dobutamine for heart rate response. * Dobutamine infusion was terminated due to achieving target heart rate * A total of 5 mg of IV Metoprolol was administered to reverse Dobutamine-induced tachycardia. * The patient exhibited chest pain during the drug infusion. * Target heart rate achieved. Left Ventricular Findings with Stress * Baseline EKG was normal There were no significant ST or T-wave changes with peak dobutamine infusion There was development of what appeared to be a rate-related bundle branch block at peak heart rate Baseline echocardiogram was normal There was normal augmentation of all segments without development of inducible wall motion abnormalities at peak dobutamine infusion Patient did report chest pain during the procedure MMode 2D Measurements and Calculations IVSd 1.4 cm IVSs 1.6 cm LVIDd 4.8 cm LVIDs 3.1 cm LVPWd 0.86 cm LVPWs 1.6 cm IVS/LVPW 1.6 FS 36.1 % EDV(Teich) 108.4 ml ESV(Teich) 37.3 ml EF(Teich) 65.6 % EDV(cubed) 111.7 ml ESV(cubed) 29.2 ml EF(cubed) 73.9 % % IVS thick 14.5 % % LVPW thick 88.0 % LV mass(C)d 200.4 grams LV mass(C)dI 93.9 grams/m\S\2 LV mass(C)s 182.4 grams LV mass(C)sI 85.5 grams/m\S\2 CO(Teich) 3.4 l/min CI(Teich) 1.6 l/min/m\S\2 SV(Teich) 71.1 ml SI(Teich) 33.3 ml/m\S\2 CO(cubed) 4.0 l/min CI(cubed) 1.9 l/min/m\S\2 SV(cubed) 82.6 ml SI(cubed) 38.7 ml/m\S\2 ACS 1.5 cm LA dimension 3.7 cm asc Aorta Diam 3.3 cm LVOT diam 1.8 cm LVOT area 2.6 cm\S\2 LVAd ap4 35.8 cm\S\2 LVLd ap4 8.0 cm EDV(MOD-sp4) 131.0 ml LVAs ap4 18.5 cm\S\2 LVLs ap4 5.9 cm ESV(MOD-sp4) 49.5 ml EF(MOD-sp4) 62.2 % CO(MOD-sp4) 3.9 l/min CI(MOD-sp4) 1.8 l/min/m\S\2 SV(MOD-sp4) 81.5 ml SI(MOD-sp4) 38.2 ml/m\S\2 Doppler Measurements and Calculations MV E max jay 100.4 cm/sec MV A max jay 111.1 cm/sec MV E/A 0.90 MV dec time 0.25 sec Ao V2 max 137.1 cm/sec Ao max PG 7.5 mmHg Ao max PG (full) 5.1 mmHg RICO(V,A) 1.5 cm\S\2 RICO(V,D) 1.5 cm\S\2 LV V1 max PG 2.4 mmHg LV V1 max 77.6 cm/sec PA V2 max 64.5 cm/sec PA max PG 1.7 mmHg PI end-d jay 86.9 cm/sec TR max jay 243.0 cm/sec
[2017-12-10 15:35] VITALS: BP 105/68; PULSE 52; TEMP 36.9; O2SAT 96
[2017-12-10 15:47] VITALS: BP 105/68; PULSE 52; TEMP 36.9; O2SAT 96
[2017-12-10] MEDS ORDERED: NTRSLP4 SL (15:54)
--- NOTE | 2017-12-10 15:55 | Discharge Instructions ---
Discharge Instructions Date of Service December 10, 2017. Admission Reason for Admission: Chest Pain Discharge Discharge Diagnosis / Problem: Chest pain rule out, Discharge Goals Goal(s): Decrease discomfort, Improve function, Increase independence, Improve disease control, Improve nutritional status, Learn about illness, Diagnostic testing, Therapeutic intervention, Prevent Disease Progression, Specific goals Activity Recommendations Activity Limitations: resume your previous activity . Instructions / Follow-Up Instructions / Follow-Up You have chest pain, stress test is negative, Hypertension, HTN , overweight, need to follow-up with PCP - you need to follow up with your primary care physician in 1 week, - take medication as instructed, never overdose or any misuse, or take with alcohol, because misuse of medicine may cause organ damage or , call me , or your primary care physician if have questions of discharge medicaitons. - call your primary care physician, or go to local emergency room if has any fever/chill, chest pain, shortness of breathing, nausea/vomiting/abdominal pain , facial droop/slurry speech/local weakness, or if has any questions. - fall precaution - diet as instructed Current Hospital Diet Patient's current hospital diet: AHA Diet (Heart Healthy) Discharge Diet Recommended Diet: AHA Diet (Heart Healthy) Pending Studies Studies pending at discharge: no Laboratory Results Lipid Panel Test 12/10/17 07:17 Range/Units Triglycerides Level 98 0-150 mg/dl Cholesterol Level 136 0-200 mg/dl HDL Cholesterol 56 mg/dl Cholesterol/HDL Ratio 2.4 LDL Cholesterol, Calculated 60 mg/dl Medical Emergencies . Who to Call and When: Medical Emergencies: If at any time you feel your situation is an emergency, please call 911 immediately. . Non-Emergent Contact Non-Emergency issues call your: Primary Care Provider . . "Provider Documentation" section prepared by Adair Clay. .
[2017-12-10] MEDS ORDERED: OPTIRAY 320 IV PRN (19:00)
[2017-12-10 19:12] VITALS: BP 103/62; PULSE 51; TEMP 36.9; O2SAT 96
--- NOTE | 2017-12-10 19:32 | DIAGNOSTIC IMAGING REPORT ---
(CHEST FOR PE) ANGIO WITH CT DOSE: 636.34 mGy.cm HISTORY: 62 years-old Female presents with acute chest pain and shortness of breath TECHNIQUE: Multiple CTA images of the chest were obtained after the intravenous administration of 94 ml Optiray 320. Coronal and sagittal MIPS were obtained from the axial data set and were submitted for review. A dose lowering technique was utilized adhering to the principles of ALARA. COMPARISON: Chest radiograph 12/09/2017, CTA chest 09/28/2017 FINDINGS: CTA: Coronary arterial calcifications are noted. Thoracic aorta is not well opacified. There is mild fusiform dilation of the ascending thoracic aorta, 3.9 x 4.0 cm without dissection. The imaged great vessels appear to be patent. Pulmonary arterial tree is opacified to level of the segmental branches and demonstrates no focal filling defects to suggest pulmonary thromboembolic disease. . CT CHEST: No dominant thyroid nodule or pathologic adenopathy identified. There is mild bilateral bronchial wall thickening. No pneumothorax, pleural effusion, focal airspace consolidation or overt pulmonary edema. No suspicious pulmonary nodules or masses. Prior cholecystectomy. Reflux of contrast into the IVC. No acute process of the imaged upper abdomen identified. Soft tissues and breast parenchyma appear unremarkable. The bones appear intact. Multilevel endplate spurring about the spine. IMPRESSION: 1. No evidence of acute aortic pathology or evidence of pulmonary thromboembolic disease. 2. Mild fusiform dilation of the ascending thoracic aorta redemonstrated, 3.9 x 4.0 cm. 3. No lobar airspace consolidation or pathologic adenopathy. 4. Bilateral bronchial wall thickening suggests bronchitis. 5. Prior cholecystectomy. The above report was generated using voice recognition software. It may contain grammatical, syntax or spelling errors. Electronically signed by: Kermit Vora M.D. 12/10/2017 7:31 PM Dictated Date/Time: 12/10/2017 7:26 PM
--- NOTE | 2017-12-11 13:00 | Discharge Summary ---
Discharge Summary Date of Service December 11, 2017. Discharge Summary Admission Date: December 09, 2017 at 14:38 Discharge Date: December 10, 2017 Discharge Disposition: Home Principal Diagnosis: Atypical chest pain Problems/Secondary Diagnoses: Chest pain rule out ACS, dobutamine stress test unremarkable Chest CT has rule out PE Immunizations: Have You Had Influenza Vaccine: N/A History of Tetanus Vaccine?: Unknown History of Pneumococcal: Yes History of Hepatitis B Vaccine: Unknown Procedures: No Consultations: No Medication Reconciliation New Medications: Nitroglycerin (Nitrostat) 0.4 Mg/1 Tab Subl 0.4 MG SL UD PRN for Chest Pain for 30 Days 1 tab subling prn for chest pain , could be up to 2 dose Continued Medications: Diclofenac Sodium (Topical) (Voltaren 1% Top Gel) 1 % Gel 1 APPLN TD BID PRN for FLARE-UPS APPLY TO BILATERAL KNEES, NEEDED. Furosemide (Lasix) 40 Mg Tab 40 MG PO DAILY, TAB Lisinopril (Lisinopril) 5 Mg Tab 5 MG PO DAILY Discharge Exam No more chest pain up and walk, Review of Systems: Constitutional: No fever, No chills, No sweats, No weight loss, No weakness , No fatigue, No problem reported Eyes: No worsening of vision, No eye pain, No redness, No discharge, No diplopia, No problem reported Respiratory: No cough, No sputum, No wheezing, No shortness of breath, No dyspnea on exertion, No dyspnea at rest, No hemoptysis, No problem reported Cardiovascular: No chest pain, No orthopnea, No PND, No edema, No claudication, No palpitations, No problem reported Abdomen: No pain, No nausea, No vomiting, No diarrhea, No constipation, No GI bleeding, No problem reported Musculoskeletal: No joint pain, No muscle pain, No swelling, No calf pain, No problem reported Genitourinary - Female: No dysuria, No urinary frequency, No urinary urgency , No urinary incontinence, No urinary retention, No hematuria, No dysmenorrhea, No menorrhagia, No metrorrhagia, No rash, No vaginal bleeding, No vaginal discharge, No vaginal itching, No vulvodynia, No , No problem reported Neurologic: No memory loss, No paralysis, No weakness, No numbness/tingling , No vertigo, No balance problems, No problem reported Psychiatric: No depression symptoms, No anhedonism, No anxiety, No insomnia , No substance abuse, No problem reported Endocrine: No fatigue, No excessive thirst, No excessive urination, No problem reported Integumentary: No rash, No itch, No new/changing skin lesions, No color change, No bleeding, No problem reported Physical Exam: General Appearance: WD/WN, no apparent distress, + obese Eyes: normal inspection, PERRL ENT: normal ENT inspection, hearing grossly normal Neck: supple, no adenopathy, thyroid normal Respiratory/Chest: chest non-tender, lungs clear, normal breath sounds, no respiratory distress, no accessory muscle use, + decreased breath sounds Cardiovascular: regular rate, rhythm, no edema, no gallop, no JVD, no murmur , normal peripheral pulses Abdomen / GI: normal bowel sounds, non tender, soft, no organomegaly, no pulsatile mass Extremities: normal inspection, no calf tenderness, normal capillary refill , no pedal edema 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 Chest Pain: Was admitted to telemetry, , aSA 81 mg daily; NTG SL PRN Dobutamin stress test was negative Mild elevated d-dimer, chest CT has rule out acute PE Therefore patient has atypical chest pain Will discharge home follow-up with PCP in 5-7 days HTN: Uncontrolled, has been better, recommend follow-up with PCP - BP largely in 140s/80 but was up in the 180s during examination - could be situational given her report that they are better at home - States they have tried a couple BP meds for her and the "hurt her kidneys" - likely had some sort of HCTZ/ACEI-ARB combo prior - Continue Lasix 40 mg daily and Lisinopril DVT Prophylaxis: Heparin Code Status: FULL RESUSCITATION Patient discharged home in stable condition Instructions / Follow-Up You have chest pain, stress test is negative, Hypertension, HTN , overweight, need to follow-up with PCP - you need to follow up with your primary care physician in 1 week, - take medication as instructed, never overdose or any misuse, or take with alcohol, because misuse of medicine may cause organ damage or , call me , or your primary care physician if have questions of discharge medicaitons. - call your primary care physician, or go to local emergency room if has any fever/chill, chest pain, shortness of breathing, nausea/vomiting/abdominal pain , facial droop/slurry speech/local weakness, or if has any questions. - fall precaution - diet as instructed Total Time Spent: Greater than 30 minutes This includes examination of the patient, discharge planning, medication reconciliation, and communication with other providers. Discharge Instructions Please refer to the electronic Patient Visit Report (Discharge Instructions) for additional information. Additional Copies To Alma Christian.
== END 2017-12-10 20:00 | disposition home or self-care (01) ==
LOC: C.EDB 11:53 → C.MED 14:38 → ENRESERV 15:09 → C.MED 15:43
PROVIDERS: ADMIT Internal Medicine; ATTEND Hospitalist
DX: R07.89 Other chest pain (principal); I10 Essential (primary) hypertension; Z82.49 Family history of ischemic heart disease and other diseases of the circulatory system; Z87.891 Personal history of nicotine dependence; Z90.49 Acquired absence of other specified parts of digestive tract; Z90.89 Acquired absence of other organs; Z98.890 Other specified postprocedural states

== ENCOUNTER → 2017-12-24 | Outpatient (CLI) | payer OTHER ==
[~2017-12-24] MED LIST changes: +FRS/40 PO; +LSN5 PO; +NTRSLP4 SL
== END | disposition home or self-care (01) ==
LOC: C.RC 13:44
PROVIDERS: ATTEND Nurse Practitioner Family
DX: R07.9 Chest pain, unspecified (principal); R05 Cough; R06.02 Shortness of breath; Z77.22 Contact with and (suspected) exposure to environmental tobacco smoke (acute) (chronic)

== ENCOUNTER 2020-12-20 08:50 | Observation (INO) ==
[2020-12-20 09:19] LABS: Basophils # (auto) 0.02 K/uL (0-0.2); Basophils % (auto) 0.3 %; Eosinophils # (auto) 0.27 K/uL (0-0.5); Eosinophils % (auto) 3.4 %; Hematocrit (blood only) 44.7 % (37-47); Hemoglobin 14.8 g/dL (12.0-16.0); Immature Granulocytes # (auto) 0.01 K/uL (0.00-0.02); Immature Granulocytes % (auto) 0.1 %; Lymphocytes # (auto) 2.04 K/uL (1.2-3.4); Lymphocytes % (auto) 25.7 %; Mean Corpuscular Hemoglobin 30.8 pg (25-34); Mean Corpuscular Hgb Conc 33.1 g/dL (32-36); Mean Corpuscular Volume 92.9 fL (80-100); Mean Platelet Volume 10.5 fL (7.4-10.4); Monocytes # (auto) 0.53 K/uL (0.11-0.59); Monocytes % (auto) 6.7 %; Neutrophils # (auto) 5.08 K/uL (1.4-6.5); Neutrophils % (auto) 63.8 %; Platelet Count 197 K/uL (130-400); RDW Coefficient of Variation 13.6 % (11.5-14.5); RDW Standard Deviation 46.2 fL (36.4-46.3); Red Blood Count 4.81 M/uL (4.2-5.4); White Blood Count 7.95 K/uL (4.8-10.8)
[2020-12-20 09:29] LABS: Prothrombin Time 9.8 Seconds (9.0-12.0)
--- NOTE | 2020-12-20 09:33 | Emergency Department Note ---
History of Present Illness General Chief complaint: Chest Pain Stated complaint: CHEST PAIN Time Seen by Provider: 12/20/20 09:04 Source: patient Mode of arrival: ambulatory Limitations: no limitations History of Present Illness Provider complaint: chest pain Onset (ago): day(s) 2 Location: chest Radiation: back and neck Severity: moderate Pain Consistency: + constant Maximum Pain Intensity: 7 Current Pain Intensity: 7 Quality: + constant Relieved By: + none Exacerbated By: + none Associated symptoms: + denies other symptoms Treatments prior to arrival: none This is a 65-year-old female presents emergency department complaining of 2 days of chest pain. Patient states symptoms began on Thursday, in her central chest, began to radiate into her back. Patient states pain was initially intermittent, however no particular trigger to her pattern with her episodes of pain. She states it would last varying intervals of time. Patient states she has previously had similar episodes of chest pain and does follow with Dr. Coffman and routinely due to significant family history of coronary artery disease. Patient denies any recent trauma or change in activity, no history of GERD and no recent heartburn symptoms. Patient denies fevers chills or URI symptoms. Patient states today pain was more constant, was also radiating into her neck. She denies any accompanying shortness of breath, dizziness, nausea or vomiting. No recent change in bowel or bladder function, no recent lower extremity edema. Patient states she is due for her yearly cardiology appointment in January. Patient states he has previously had a cardiac catheterization, no interventions were performed. Pt seen during a time of high acuity and national emergency pandemic while wearing PPE. Home Medications Medication Instructions Recorded Confirmed Type Bioflex 1 tab PO QAM 09/03/18 12/20/20 History diclofenac sodium [Voltaren] 1 applic TOPICAL UD PRN 09/03/18 12/20/20 History nitroglycerin [Nitrostat] 0.4 mg SUBLINGUAL UD PRN 09/03/18 12/20/20 History lisinopril 20 mg PO QAM 11/22/18 12/20/20 History bumetanide 1 mg tablet 1 mg PO QAM 02/24/20 12/20/20 History fluticasone propionate 50 1 sprays INTNAS QAM 02/24/20 12/20/20 History mcg/actuation nasal spray,suspension loratadine 10 mg capsule 10 mg PO DAILY PRN 02/24/20 12/20/20 History albuterol sulfate 90 mcg/actuation 2 inh INH Q6H PRN #18 g 10/04/20 12/20/20 Rx aerosol inhaler budesonide-formoterol HFA 160 2 inh INH BID #10.2 g 10/04/20 12/20/20 Rx mcg-4.5 mcg/actuation aerosol inhaler tiotropium bromide 1.25 2 puff INHALATION QPM #4 g 10/04/20 12/20/20 Rx mcg/actuation mist for inhalation Belly Detox Powder 1 packet PO DIRECTED 12/20/20 12/20/20 History Allergies Allergy/AdvReac Type Severity Reaction Status Date / Time No Known Allergies Allergy Verified 12/20/20 09:49 Past Med/Surg History Medical History Asthma inhaler daily/prn Deep vein thrombosis 8 YEARS AGO (S/P SURGERY) Degenerative disc disease Difficulty swallowing solids reason for scheduled EGD History of anesthesia reaction pt states her HR dropped low with knee surgeries--pt states she has had sx since then and done ok with anesthesia History of scarlet fever at age 11 Hyperlipidemia Hypertension Left bundle branch block Migraine Morbid obesity with BMI of 45.0-49.9, adult Osteoarthritis Sleep apnea CPAP Surgical History Fusion of spine CERVICAL FUSION C5-6 LIMITED ROM H/O: hysterectomy Heel spur REMOVED History of cardiac cath 09/2018 (NO STENTS PLACED) SANDEEP History of section X 2 History of colonoscopy History of tooth extraction all teeth removed History of total knee replacement LEFT KNEE X 2 RT KNEE Nausea and vomiting after administration of anesthetic agent S/P appendectomy S/P cholecystectomy S/P epidural steroid injection SI JOINT INJECTION HISTORY Family History Mother Diabetes Slow to wake up after anesthesia Father Diabetes Other Cancer Gallbladder disease Heart disease Hypertension Denies family history of Tuberculosis Allergies Emphysema, unspecified Lung disease Asthma Social History Smoking Status: Former smoker Tobacco Type: Cigarettes packs per day: 0.5; Years Smoked: 1; Number of Years Since Quit: 44; Second Hand Exposure: Yes (father smoked); Hx Alcohol Use: No Hx Substance Use: No Preferred Language: Arabic Communication Ability: Effective Practicing Dermatologist Required: No Beliefs That Will Affect Care: None Current Living Situation: Family Current Living Situation Comment: Lives with and son Other Information That Helps Us Care for You: No Feels Safe at Home: Yes Safety Concerns: Feels Safe At This Time Assistive Devices: Glasses Review of Systems See HPI for pertinent positives & negatives. and A total of 10 systems reviewed and were otherwise negative Physical Exam Vital Signs Vital Signs - 24 hr 12/20/20 08:54 12/20/20 09:05 12/20/20 09:12 Temperature 36.0 C L Temperature Source Temporal Artery Scan Pulse Rate 59 L 54 L 52 L Pulse Rate [Apical] Pulse Rate from SpO2 Sensor Respiratory Rate 18 19 15 Respiratory Depth Blood Pressure 192/97 H 169/71 H Blood Pressure [Right Arm] Blood Pressure Mean 128 103 Blood Pressure Mean [Right Arm] Pulse Oximetry 100 Oxygen Delivery Method Room Air Sepsis Recent Fever Within 48 Hours No Sepsis New/Unexplained Change in Mental Status N/A Sepsis Action Taken by Nursing No Action Required 12/20/20 09:15 12/20/20 09:30 12/20/20 09:32 Temperature Temperature Source Pulse Rate 53 L 51 L Pulse Rate [Apical] 58 L Pulse Rate from SpO2 Sensor Respiratory Rate 18 20 13 Respiratory Depth Normal Blood Pressure 195/91 H Blood Pressure [Right Arm] 169/81 H Blood Pressure Mean 125 Blood Pressure Mean [Right Arm] 110 Pulse Oximetry 98 Oxygen Delivery Method Room Air Sepsis Recent Fever Within 48 Hours Sepsis New/Unexplained Change in Mental Status Sepsis Action Taken by Nursing 12/20/20 10:00 12/20/20 10:01 12/20/20 10:30 Temperature Temperature Source Pulse Rate 50 L 52 L 49 L Pulse Rate [Apical] Pulse Rate from SpO2 Sensor Respiratory Rate 14 14 15 Respiratory Depth Blood Pressure 179/85 H Blood Pressure [Right Arm] Blood Pressure Mean 116 Blood Pressure Mean [Right Arm] Pulse Oximetry Oxygen Delivery Method Sepsis Recent Fever Within 48 Hours Sepsis New/Unexplained Change in Mental Status Sepsis Action Taken by Nursing 12/20/20 10:31 12/20/20 10:38 12/20/20 10:39 Temperature Temperature Source Pulse Rate 52 L 55 L 54 L Pulse Rate [Apical] Pulse Rate from SpO2 Sensor Respiratory Rate 15 14 15 Respiratory Depth Blood Pressure 174/83 H 193/91 H Blood Pressure [Right Arm] Blood Pressure Mean 113 125 Blood Pressure Mean [Right Arm] Pulse Oximetry Oxygen Delivery Method Sepsis Recent Fever Within 48 Hours Sepsis New/Unexplained Change in Mental Status Sepsis Action Taken by Nursing 12/20/20 11:00 12/20/20 11:01 12/20/20 11:30 Temperature Temperature Source Pulse Rate 57 L 58 L 60 Pulse Rate [Apical] Pulse Rate from SpO2 Sensor 60 Respiratory Rate 16 15 20 Respiratory Depth Blood Pressure 139/67 Blood Pressure [Right Arm] Blood Pressure Mean 91 Blood Pressure Mean [Right Arm] Pulse Oximetry 98 Oxygen Delivery Method Sepsis Recent Fever Within 48 Hours Sepsis New/Unexplained Change in Mental Status Sepsis Action Taken by Nursing 12/20/20 12:00 12/20/20 12:01 12/20/20 12:30 Temperature Temperature Source Pulse Rate 55 L 54 L 53 L Pulse Rate [Apical] Pulse Rate from SpO2 Sensor 55 L 54 L 53 L Respiratory Rate 15 16 11 L Respiratory Depth Blood Pressure 126/60 144/64 H Blood Pressure [Right Arm] Blood Pressure Mean 82 90 Blood Pressure Mean [Right Arm] Pulse Oximetry 97 97 96 Oxygen Delivery Method Sepsis Recent Fever Within 48 Hours Sepsis New/Unexplained Change in Mental Status Sepsis Action Taken by Nursing 12/20/20 13:00 12/20/20 13:01 12/20/20 13:30 Temperature Temperature Source Pulse Rate 55 L 52 L 51 L Pulse Rate [Apical] Pulse Rate from SpO2 Sensor 55 L 53 L 51 L Respiratory Rate 14 10 L 14 Respiratory Depth Blood Pressure 131/53 L 125/54 L Blood Pressure [Right Arm] Blood Pressure Mean 79 77 Blood Pressure Mean [Right Arm] Pulse Oximetry 96 96 98 Oxygen Delivery Method Sepsis Recent Fever Within 48 Hours Sepsis New/Unexplained Change in Mental Status Sepsis Action Taken by Nursing 12/20/20 14:00 12/20/20 14:01 12/20/20 14:30 Temperature Temperature Source Pulse Rate 73 54 L 50 L Pulse Rate [Apical] Pulse Rate from SpO2 Sensor 71 54 L 50 L Respiratory Rate 19 20 10 L Respiratory Depth Blood Pressure 147/111 H Blood Pressure [Right Arm] Blood Pressure Mean 123 Blood Pressure Mean [Right Arm] Pulse Oximetry 97 97 97 Oxygen Delivery Method Sepsis Recent Fever Within 48 Hours Sepsis New/Unexplained Change in Mental Status Sepsis Action Taken by Nursing 12/20/20 14:31 12/20/20 14:32 12/20/20 15:00 Temperature Temperature Source Pulse Rate 49 L 52 L 50 L Pulse Rate [Apical] Pulse Rate from SpO2 Sensor 49 L 52 L 50 L Respiratory Rate 13 18 16 Respiratory Depth Blood Pressure 120/55 L Blood Pressure [Right Arm] Blood Pressure Mean 76 Blood Pressure Mean [Right Arm] Pulse Oximetry 97 97 98 Oxygen Delivery Method Sepsis Recent Fever Within 48 Hours Sepsis New/Unexplained Change in Mental Status Sepsis Action Taken by Nursing 12/20/20 15:01 Temperature Temperature Source Pulse Rate 51 L Pulse Rate [Apical] Pulse Rate from SpO2 Sensor 51 L Respiratory Rate 17 Respiratory Depth Blood Pressure 150/55 H Blood Pressure [Right Arm] Blood Pressure Mean 86 Blood Pressure Mean [Right Arm] Pulse Oximetry 97 Oxygen Delivery Method Sepsis Recent Fever Within 48 Hours Sepsis New/Unexplained Change in Mental Status Sepsis Action Taken by Nursing GENERAL: alert, uncomfortable appearing, well nourished, no distress, non-toxic EYE EXAM: normal conjunctiva, PERRL and EOM's grossly intact OROPHARYNX: no exudate, no erythema, lips, buccal mucosa, and tongue normal and mucous membranes are moist NECK: supple, no nuchal rigidity, no adenopathy, non-tender LUNGS: Clear to auscultation. Normal chest wall mechanics, no w/r/r HEART: no murmurs, S1 normal and S2 normal, no reproducible chest wall tenderness ABDOMEN: abdomen soft, non-tender, normo-active bowel sounds, no masses, no rebound or guarding. BACK: Back is symmetrical on inspection and there is no deformity, no midline tenderness, no CVA tenderness. SKIN: no rashes and no bruising, no petechiae UPPER EXTREMITIES: upper extremities are grossly normal. FROM, nml pulses b/l. LOWER EXTREMITIES: No pitting edema. FROM, nml pulses b/l. NEURO EXAM: Normal sensorium, cranial nerves II-XII grossly intact, normal speech, no gross weakness of arms, no gross weakness of legs. Gross sensation intact. Course Course 1155: Pt updated on results. States she is still having pain. 1245: Discussed with Dr. Sheldon. Administered Medications Ondansetron HCl (Ondansetron Inj 2 Mg/Ml 2 Ml Vial) 4 mg IV Q6H PRN PRN Reason: Nausea Stop: 01/19/21 16:33 Last Admin: 12/20/20 16:41 Dose: 4 mg Documented by: [id number] Umeclidinium [place] (Umeclidinium [place] 62.5mcg/Blister 7 Puffs/Inhaler) 1 puffs INH PM BRIANNA Stop: 01/19/21 20:59 Last Admin: 12/20/20 21:56 Dose: 1 puffs Documented by: [id number] Discontinued Medications Famotidine (Famotidine 20mg/5ml Iv Push) 20 mg IV ONE STA Stop: 12/20/20 10:24 Last Admin: 12/20/20 10:38 Dose: 20 mg Documented by: [id number] Acetaminophen (Ofirmev) 1,000 mg in 100 mls @ 400 mls/hr IV NOW STA Stop: 12/20/20 12:11 Last Infusion: 12/20/20 12:15 Dose: 0 mls/hr Documented by: [id number] Admin: 12/20/20 12:13 Dose: 400 mls/hr Documented by: [id number] Ioversol (Optiray 350 500ml) 115 ml IV ONCE ONE Stop: 12/20/20 10:46 Last Admin: 12/20/20 10:46 Dose: 115 ml Documented by: [id number] Morphine Sulfate (Morphine Sulfate 4 Mg/Ml 1 Ml Carp\Vial) 4 mg IV NOW STA Stop: 12/20/20 11:58 Last Admin: 12/20/20 12:13 Dose: 4 mg Documented by: [id number] Nitroglycerin (Nitroglycerin 2% Ointment 30gm Tube) 1 inch EXT NOW STA Stop: 12/20/20 10:15 Last Admin: 12/20/20 10:19 Dose: 1 inch Documented by: [id number] Medical Decision Making Differential Diagnosis Differential diagnoses includes but is not limited to acute coronary syndrome, myocardial infarction, pericarditis, pulmonary embolus, aortic dissection, pneumonia, pneumothorax, musculoskeletal, shingles, esophageal. Medical Records Attestation: I reviewed the patient's medical records. Home Medications Current Medication List: was personally reviewed by me Laboratory Data Attestation: I reviewed the patient's lab results. Result diagrams: 12/20/20 09:07 12/20/20 09:07 Lab Results 05/20/21 05/20/21 05/20/21 Range/Units 09:07 09:07 09:07 WBC 7.95 (4.8-10.8) K/uL RBC 4.81 (4.2-5.4) M/uL Hgb 14.8 (12.0-16.0) g/dL Hct 44.7 (37-47) % MCV 92.9 (80-100) fL MCH 30.8 (25-34) pg MCHC 33.1 (32-36) g/dL RDW Std Deviation 46.2 (36.4-46.3) fL RDW Coeff of Kesha 13.6 (11.5-14.5) % Plt Count 197 (130-400) K/uL MPV 10.5 H (7.4-10.4) fL Immature Gran % (Auto) 0.1 % Neut % (Auto) 63.8 % Lymph % (Auto) 25.7 % [place] % (Auto) 6.7 % Eos % (Auto) 3.4 % Baso % (Auto) 0.3 % Neut # (Auto) 5.08 (1.4-6.5) K/uL Lymph # (Auto) 2.04 (1.2-3.4) K/uL [place] # (Auto) 0.53 (0.11-0.59) K/uL Eos # (Auto) 0.27 (0-0.5) K/uL Baso # (Auto) 0.02 (0-0.2) K/uL Immature Gran # (Auto) 0.01 (0.00-0.02) K/uL PT 9.8 (9.0-12.0) Seconds INR 1.0 (0.9-1.1) Sodium 140 (136-145) mmol/L Potassium 4.1 (3.5-5.1) mmol/L Chloride 108 H (98-107) mmol/L Carbon Dioxide 26 (21-32) mmol/L Anion Gap 6.0 (3-11) BUN 18 (7-18) mg/dl Creatinine 0.94 (0.6-1.2) mg/dl Est Cr Clr Drug Dosing 79.0 ml/min Est GFR ( Amer) 72.8 ml/min Est GFR (Non-Af Amer) 62.8 ml/min BUN/Creatinine Ratio 19.3 (10-20) Glucose 99 (70-99) mg/dl Calcium 9.4 (8.5-10.1) mg/dl Magnesium 2.3 (1.8-2.4) mg/dl Total Bilirubin 0.5 (0.2-1) mg/dl AST 20 (15-37) U/L ALT 24 (12-78) U/L Alkaline Phosphatase 88 (45-117) U/L Troponin I < 0.015 (0-0.045) ng/ml NT-Pro-B Natriuret Pep 75 (0-900) pg/ml Total Protein 7.4 (6.4-8.2) gm/dl Albumin 3.5 (3.4-5.0) gm/dl Globulin 3.9 (2.5-4.0) gm/dl Albumin/Globulin Ratio 0.9 (0.9-2) Lipase 232 (73-393) U/L Imaging Data Radiologist's Impression: Chest X-Ray 12/20/20 09:03 XR chest 1V portable CLINICAL HISTORY: chest pain COMPARISON STUDY: Chest radiograph September 03, 2018. FINDINGS: Anterior cervical spine fusion is partially imaged. There is no pneumothorax or pleural effusion. There is mild enlargement of the cardiac silhouette. Mild interstitial prominence is noted. Apparent hazy bibasilar opacities are probably artifactual. IMPRESSION: Pulmonary vascular congestion with possible mild pulmonary edema. ACT 112: Negative or not required by law. Electronically signed by: Kevin Fernandez M.D. 12/20/2020 9:38 AM Abdomen/Pelvis CTA 12/20/20 10:23 CT ANGIOGRAM OF THE CHEST COMBO; CT ANGIOGRAM OF THE ABDOMEN AND PELVIS CLINICAL HISTORY: Atypical chest pain radiating into the back. COMPARISON STUDY: Chest x-ray dated 12/20/2020. Chest CT dated 12/10/2017. Lumbar spine radiographs dated 09/22/2018. TECHNIQUE: Unenhanced CT scan of the chest is performed. Following the IV administration of 115 cc of Optiray 350, CT angiogram of the chest, abdomen, and pelvis was performed from the thoracic inlet to the proximal femora. Images are reviewed in the axial, sagittal, and coronal planes. 3-D MIPS images are created and assessed. IV contrast was administered without complication. A dose lowering technique was utilized adhering to the principles of ALARA. CT DOSE: 3001.91 mGy.cm FINDINGS: CHEST: Thyroid: Imaged portions of the thyroid gland are normal in size and attenuation. Thoracic aorta: No intramural hematoma is identified on the unenhanced series. There is mild ectasia of the ascending thoracic aorta which measures up to 3.8 cm in diameter. The remainder of the thoracic aorta is normal in caliber, and the arch demonstrates standard 3-vessel anatomy. No aneurysm or dissection is seen. The arch vessels are widely patent. Pulmonary vasculature: The pulmonary trunk is normal in caliber. There are no filling defects identified in the main, lobar, or segmental pulmonary vessels to indicate pulmonary embolus. Heart: The heart is top normal in size and without pericardial effusion. There are coronary artery calcifications. Lungs and pleural spaces: There is no airspace consolidation or pleural effusion. The trachea and central airways are clear. Mediastinum: There is no mediastinal lymphadenopathy. Mohini: Clear. Axillae: There is no axillary lymphadenopathy. Bony thorax: The skeletal structures are osteopenic. Degenerative change is noted throughout the thoracic spine. There is high-grade central canal stenosis at T11-T12 secondary to bulky facet arthropathy. No destructive bony lesions are identified. ABDOMEN AND PELVIS: Liver: The contrast-enhanced liver is normal in size and contour. The liver demonstrates diffusely diminished attenuation consistent with hepatic steatosis. There is no intrahepatic biliary ductal dilatation. The main portal veins appear patent. Gallbladder: Surgically absent noting clips in the gallbladder fossa. Spleen: Normal in size and attenuation noting heterogeneous arterial phase enhancement. Pancreas: Unremarkable. Adrenal glands: Unremarkable. Kidneys: The contrast enhanced kidneys are normal in size and without hydronephrosis. The kidneys enhance symmetrically. Abdominal aorta and iliac arteries: The abdominal aorta is normal in course and caliber. No dissection is seen. The iliac arteries are widely patent bilaterally. Major branches of the abdominal aorta: The celiac trunk, superior mesenteric, and inferior mesenteric arteries are widely patent. Hepatic arterial anatomy is conventional. The splenic vein is patent.Single bilateral renal arteries are widely patent. Stomach and bowel: There is a small hiatal hernia. There is mild colonic diverticulosis without CT evidence of acute diverticulitis. No bowel obstruction is identified. The appendix is not visualized. Peritoneum: There is no intraperitoneal free air or abdominal ascites. There is a fat-containing umbilical hernia. Lymphadenopathy: None. Pelvic viscera: The bladder is normal as visualized. The uterus is surgically absent. No adnexal lesion is seen. Skeletal structures: The skeletal structures are osteopenic. Minimal spondylotic changes noted in the lumbar spine. No destructive bony lesions are seen. Sclerotic change is noted in the sacroiliac joints and pubic symphysis. IMPRESSION: 1. There is mild ectasia of the ascending thoracic aorta which is similar to the 12/10/2017 examination. 2. The thoracic aorta is otherwise normal in appearance. No dissection is seen. 3. There is no evidence of pulmonary embolus in the main, lobar, or segmental pulmonary arteries. 4. The lungs and pleural spaces are clear. 5. Unremarkable CT angiogram of the abdominal aorta and its major branches. 6. There are no acute infectious or inflammatory findings in the abdomen or pelvis. 7. There is high-grade central canal stenosis at T11-T12 secondary to bulky calcified facet arthropathy. 8. Hepatic steatosis. 9. Mild colonic diverticulosis without CT evidence of acute diverticulitis. 10. Additional findings as above. ACT 112: Negative or not required by law. Electronically signed by: Liang Perea M.D. 12/20/2020 11:18 AM Chest CTA 12/20/20 10:23 CT ANGIOGRAM OF THE CHEST COMBO; CT ANGIOGRAM OF THE ABDOMEN AND PELVIS CLINICAL HISTORY: Atypical chest pain radiating into the back. COMPARISON STUDY: Chest x-ray dated 12/20/2020. Chest CT dated 12/10/2017. Lumbar spine radiographs dated 09/22/2018. TECHNIQUE: Unenhanced CT scan of the chest is performed. Following the IV admi nistration of 115 cc of Optiray 350, CT angiogram of the chest, abdomen, and pelvis was performed from the thoracic inlet to the proximal femora. Images are reviewed in the axial, sagittal, and coronal planes. 3-D MIPS images are created and assessed. IV contrast was administered without complication. A dose lowering technique was utilized adhering to the principles of ALARA. CT DOSE: 3001.91 mGy.cm FINDINGS: CHEST: Thyroid: Imaged portions of the thyroid gland are normal in size and attenua tion. Thoracic aorta: No intramural hematoma is identified on the unenhanced series. There is mild ectasia of the ascending thoracic aorta which measures up to 3.8 cm in diameter. The remainder of the thoracic aorta is normal in caliber, and the arch demonstrates standard 3-vessel anatomy. No aneurysm or dissection is seen. The arch vessels are widely patent. Pulmonary vasculature: The pulmonary trunk is normal in caliber. There are no filling defects identified in the main, lobar, or segmental pulmonary vessels to indicate pulmonary embolus. Heart: The heart is top normal in size and without pericardial effusion. There are coronary artery calcifications. Lungs and pleural spaces: There is no airspace consolidation or pleural effusion. The trachea and central airways are clear. Mediastinum: There is no mediastinal lymphadenopathy. Mohiin: Clear. Axillae: There is no axillary lymphadenopathy. Bony thorax: The skeletal structures are osteopenic. Degenerative change is noted throughout the thoracic spine. There is high-grade central canal stenosis at T11-T12 secondary to bulky facet arthropathy. No destructive bony lesions are identified. ABDOMEN AND PELVIS: Liver: The contrast-enhanced liver is normal in size and contour. The liver demonstrates diffusely diminished attenuation consistent with hepatic steatosis. There is no intrahepatic biliary ductal dilatation. The main portal veins appear patent. Gallbladder: Surgically absent noting clips in the gallbladder fossa. Spleen: Normal in size and attenuation noting heterogeneous arterial phase enhancement. Pancreas: Unremarkable. Adrenal glands: Unremarkable. Kidneys: The contrast enhanced kidneys are normal in size and without hydronephrosis. The kidneys enhance symmetrically. Abdominal aorta and iliac arteries: The abdominal aorta is normal in course and caliber. No dissection is seen. The iliac arteries are widely patent bilaterally. Major branches of the abdominal aorta: The celiac trunk, superior mesenteric, and inferior mesenteric arteries are widely patent. Hepatic arterial anatomy is conventional. The splenic vein is patent.Single bilateral renal arteries are widely patent. Stomach and bowel: There is a small hiatal hernia. There is mild colonic diverticulosis without CT evidence of acute diverticulitis. No bowel obstruction is identified. The appendix is not visualized. Peritoneum: There is no intraperitoneal free air or abdominal ascites. There is a fat-containing umbilical hernia. Lymphadenopathy: None. Pelvic viscera: The bladder is normal as visualized. The uterus is surgically absent. No adnexal lesion is seen. Skeletal structures: The skeletal structures are osteopenic. Minimal spondylotic changes noted in the lumbar spine. No destructive bony lesions are seen. Sclerotic change is noted in the sacroiliac joints and pubic symphysis. IMPRESSION: 1. There is mild ectasia of the ascending thoracic aorta which is similar to the 12/10/2017 examination. 2. The thoracic aorta is otherwise normal in appearance. No dissection is seen. 3. There is no evidence of pulmonary embolus in the main, lobar, or segmental pulmonary arteries. 4. The lungs and pleural spaces are clear. 5. Unremarkable CT angiogram of the abdominal aorta and its major branches. 6. There are no acute infectious or inflammatory findings in the abdomen or pelvis. 7. There is high-grade central canal stenosis at T11-T12 secondary to bulky calcified facet arthropathy. 8. Hepatic steatosis. 9. Mild colonic diverticulosis without CT evidence of acute diverticulitis. 10. Additional findings as above. ACT 112: Negative or not required by law. Electronically signed by: Liang Perea M.D. 12/20/2020 11:18 AM ECG Data Attestation: I personally reviewed and interpreted this ECG as follows: Indication: + chest pain Rate (beats per minute): 58 Rhythm: + sinus bradycardia ECG Intervals/blocks: + Normal QRS and + Normal QT ECG [place]: + Normal ECG ST segments: + Normal ST segments Blood Pressure Blood Pressure Findings: Elevated blood pressure Blood Pressure Disposition: further management by hospitalist MDM Narrative This is a 65-year-old female who presents due to concern for chest pain with radiation of the neck and back. Patient does follow with cardiology and has had a cardiac catheterization within the last 5 years. Patient markedly hypertensive initially, labs drawn and sent and chest x-ray performed. EKG initially was unremarkable and was compared to prior. 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 Patient was given medication for pain will be determined the etiology. Initial chest x-ray and labs reassuring however due to persistent pain as well as radiation patient sent for CT angiography of the chest/abdomen/pelvis. No evidence of acute vascular phenomenon, no evidence of PE, occult pneumonia, mediastinitis, perforation, or GI bleed. Patient's troponin was negative. Patient continued to have pain and additional medications were added. Due to ongoing pain and concern after review of prior records which that did show a 40% blockage along with distal circumflex, case was discussed with hospitalist for additional evaluation and management. Patient remained hemodynamically stable in the emergency room. Additional medication was added and patient's blood pressure did improve. It is unclear if this is a component of hypertensive urgency. At this time I do not have clear evidence of ACS, no evidence of tamponade, effusion, occult infectious etiology. No evidence for hypertensive emergency. An order was placed for continuous cardiac monitoring. The monitor shows a rate of _65_ with _normal sinus_ rhythm. Impression & Plan Atypical chest pain, HTN (hypertension) Discharge Plan Visit Data Chief Complaint: Chest Pain Stated Complaint: CHEST PAIN ED Provider: Deb Granados Discharge Problem: Atypical chest pain, HTN (hypertension) Patient Disposition: Admitted As Inpatient Discharge Instructions Interventions: ED Discharge Assessment Last Done: 12/20/20 15:52 Discharge Problem: HTN (hypertension) Qualifiers: Hypertension type: essential hypertension Qualified Code(s): I10 - Essential (primary) hypertension
--- NOTE | 2020-12-20 09:39 | XRay Report ---
XR chest 1V portable CLINICAL HISTORY: chest pain COMPARISON STUDY: Chest radiograph September 03, 2018. FINDINGS: Anterior cervical spine fusion is partially imaged. There is no pneumothorax or pleural eff usion. There is mild enlargement of the cardiac silhouette. Mild interstitial prominence is noted. Ap parent hazy bibasilar opacities are probably artifactual. IMPRESSION: Pulmonary vascular congestion with possible mild pulmonary edema. ACT 112: Negative or not required by law. Electronically signed by: Kevin Fernandez M.D. 12/20/2020 9:38 AM
[2020-12-20 09:44] LABS: Alanine Aminotransferase 24 U/L (12-78); Albumin Level 3.5 gm/dl (3.4-5.0); Aspartate Aminotransferase 20 U/L (15-37); BUN Creatinine Ratio 19.3 (10-20); Blood Urea Nitrogen 18 mg/dl (7-18); Calcium 9.4 mg/dl (8.5-10.1); Carbon Dioxide 26 mmol/L (21-32); Chloride 108 mmol/L (98-107); Est GFR (African American) 72.8 ml/min; Est GFR (Non-African American) 62.8 ml/min; Glucose 99 mg/dl (70-99); Lipase 232 U/L (73-393); Magnesium 2.3 mg/dl (1.8-2.4); Potassium 4.1 mmol/L (3.5-5.1); Sodium 140 mmol/L (136-145)
[2020-12-20 09:49] LABS: Albumin Globulin Ratio 0.9 (0.9-2); Alkaline Phosphatase 88 U/L (45-117); Bilirubin,Total 0.5 mg/dl (0.2-1); Globulin 3.9 gm/dl (2.5-4.0); NT Pro B Type Natriuretic Pept 75 pg/ml (0-900); Total Protein 7.4 gm/dl (6.4-8.2); Troponin I < 0.015 ng/ml (0-0.045)
[2020-12-20] MEDS ORDERED: NITROGLYCERIN 2% OINTMENT 30GM TUBE EXT STA (10:14)
[2020-12-20] MEDS ORDERED: FAMOTIDINE 20MG/5ML IV PUSH IV STA (10:23)
[2020-12-20] MEDS ORDERED: OPTIRAY 350 500ml IV ONE (10:45)
--- NOTE | 2020-12-20 11:19 | CT Scan Report ---
CT ANGIOGRAM OF THE CHEST COMBO; CT ANGIOGRAM OF THE ABDOMEN AND PELVIS CLINICAL HISTORY: Atypical chest pain radiating into the back. COMPARISON STUDY: Chest x-ray dated 12/20/2020. Chest CT dated 12/10/2017. Lumbar spine radiographs da alla 09/22/2018. TECHNIQUE: Unenhanced CT scan of the chest is performed. Following the IV administration of 115 cc of Optiray 350, CT angiogram of the chest, abdomen, and pelvis was performed from the thoracic inlet to the proximal femora. Images are reviewed in the axial, sagittal, and coronal planes. 3-D MIPS images are created and assessed. IV contrast was administered without complication. A dose lowering techniq ue was utilized adhering to the principles of ALARA. CT DOSE: 3001.91 mGy.cm FINDINGS: CHEST: Thyroid: Imaged portions of the thyroid gland are normal in size and attenuation. Thoracic aorta: No intramural hematoma is identified on the unenhanced series. There is mild ectasia of the ascending thoracic aorta which measures up to 3.8 cm in diameter. The remainder of the thoraci c aorta is normal in caliber, and the arch demonstrates standard 3-vessel anatomy. No aneurysm or dis section is seen. The arch vessels are widely patent. Pulmonary vasculature: The pulmonary trunk is normal in caliber. There are no filling defects identif ied in the main, lobar, or segmental pulmonary vessels to indicate pulmonary embolus. Heart: The heart is top normal in size and without pericardial effusion. There are coronary artery ca lcifications. Lungs and pleural spaces: There is no airspace consolidation or pleural effusion. The trachea and pamela tral airways are clear. Mediastinum: There is no mediastinal lymphadenopathy. Mohini: Clear. Axillae: There is no axillary lymphadenopathy. Bony thorax: The skeletal structures are osteopenic. Degenerative change is noted throughout the thor acic spine. There is high-grade central canal stenosis at T11-T12 secondary to bulky facet arthropath y. No destructive bony lesions are identified. ABDOMEN AND PELVIS: Liver: The contrast-enhanced liver is normal in size and contour. The liver demonstrates diffusely di minished attenuation consistent with hepatic steatosis. There is no intrahepatic biliary ductal dilat ation. The main portal veins appear patent. Gallbladder: Surgically absent noting clips in the gallbladder fossa. Spleen: Normal in size and attenuation noting heterogeneous arterial phase enhancement. Pancreas: Unremarkable. Adrenal glands: Unremarkable. Kidneys: The contrast enhanced kidneys are normal in size and without hydronephrosis. The kidneys enh ance symmetrically. Abdominal aorta and iliac arteries: The abdominal aorta is normal in course and caliber. No dissectio n is seen. The iliac arteries are widely patent bilaterally. Major branches of the abdominal aorta: The celiac trunk, superior mesenteric, and inferior mesenteric arteries are widely patent. Hepatic arterial anatomy is conventional. The splenic vein is patent.Sin gle bilateral renal arteries are widely patent. Stomach and bowel: There is a small hiatal hernia. There is mild colonic diverticulosis without CT ev idence of acute diverticulitis. No bowel obstruction is identified. The appendix is not visualized. Peritoneum: There is no intraperitoneal free air or abdominal ascites. There is a fat-containing umbi lical hernia. Lymphadenopathy: None. Pelvic viscera: The bladder is normal as visualized. The uterus is surgically absent. No adnexal lesi on is seen. Skeletal structures: The skeletal structures are osteopenic. Minimal spondylotic changes noted in the lumbar spine. No destructive bony lesions are seen. Sclerotic change is noted in the sacroiliac join ts and pubic symphysis. IMPRESSION: 1. There is mild ectasia of the ascending thoracic aorta which is similar to the 12/10/2017 examinatio n. 2. The thoracic aorta is otherwise normal in appearance. No dissection is seen. 3. There is no evidence of pulmonary embolus in the main, lobar, or segmental pulmonary arteries. 4. The lungs and pleural spaces are clear. 5. Unremarkable CT angiogram of the abdominal aorta and its major branches. 6. There are no acute infectious or inflammatory findings in the abdomen or pelvis. 7. There is high-grade central canal stenosis at T11-T12 secondary to bulky calcified facet arthropat hy. 8. Hepatic steatosis. 9. Mild colonic diverticulosis without CT evidence of acute diverticulitis. 10. Additional findings as above. ACT 112: Negative or not required by law. Electronically signed by: Liang Perea M.D. 12/20/2020 11:18 AM
[2020-12-20] MEDS ORDERED: MoRPHine SULFATE 4 MG/ML 1 ML CARP\\VIAL IV STA (11:57)
[2020-12-20] MEDS ORDERED: ACETAMINOPHEN 1,000 MG/100 ML VIAL IV STA (11:57)
--- NOTE | 2020-12-20 14:32 | History & Physical Report ---
Date of Service December 20, 2020 Assessment & Plan (1) COVID-19: Asymptomatic in the setting of receiving her full vaccine in November - CT scan of the chest shows no pulmonary process - Supportive care as it arises - CRP, Ferritin, Fibrinogen in morning - self rotation and proning (2) Chest pain of uncertain etiology: As above, does not appear cardiac in nature at this time - Observe over night on telemetry, trend troponin and ECG - Continue Aspirin (3) HTN (hypertension): Well controlled - Continue Bumex - Continue lisinopril (4) Exertional shortness of breath: Patient with non-specific PFT, normal CT of the lungs, normal DLCO. - She feels improved with the addition of spiriva it appears - Continue multimodal treatment (5) Asthma: As above (6) Morbid obesity: Might benefit from referral through PCP to Dr. Landry for obesity managment (7) SOPHIE (obstructive sleep apnea): Continue with CPAP 4 CM H20 History of Present Illness Primary Care Provider: JEFFERY Blanco 65 YOF with past medical history of arthritis, HTN, HLD, LBBB, obesity, asthma. Patient comes to the emergency room today for complaints of left sided chest pain that feels like someone is pushing on her chest. This has been going on for the past 3 days. She has not noticed that this pain occurs with any activity or ambulation. She also endorses that this morning it went to her jaw and lasted 10 minutes and went away. She denies any diaphoresis, nausea/vomiting, or increase in her fatigue. In the emergency room she had CTA fo the chest, abdomen/pelvis done, CXR. She had a ECG that shows resolution of her LBBB that was present in 2019. Initial Troponin I at 0900 was <0.015. She was given 4 mg of morphine that seems to have relived her pain at current, as well as 1 inch of nitropaste. She got a dose of famotidine IV, which she did not think helped. She had a Dobutamine stress test done in 2018 that obtained max METS and was normal. ECHO in 2018 EF 55-60% normal mitral and aortic valves. She feels her breathing is actually improved from her baseline dyspnea. Patient is currently having no symptoms, will be observed to trend troponin and ECG. During admissions process, she was noted to have a positive COVID test. She has received 2 doses of her vaccine, that was completed in November. Allergies Allergy/AdvReac Type Severity Reaction Status Date / Time No Known Allergies Allergy Verified 12/20/20 09:49 Home Medications Medication Instructions Recorded Confirmed Type Bioflex 1 tab PO QAM 09/03/18 12/20/20 History diclofenac sodium [Voltaren] 1 applic TOPICAL UD PRN 09/03/18 12/20/20 History nitroglycerin [Nitrostat] 0.4 mg SUBLINGUAL UD PRN 09/03/18 12/20/20 History lisinopril 20 mg PO QAM 11/22/18 12/20/20 History bumetanide 1 mg tablet 1 mg PO QAM 02/24/20 12/20/20 History fluticasone propionate 50 1 sprays INTNAS QAM 02/24/20 12/20/20 History mcg/actuation nasal spray,suspension loratadine 10 mg capsule 10 mg PO DAILY PRN 02/24/20 12/20/20 History albuterol sulfate 90 mcg/actuation 2 inh INH Q6H PRN #18 g 10/04/20 12/20/20 Rx aerosol inhaler budesonide-formoterol HFA 160 2 inh INH BID #10.2 g 10/04/20 12/20/20 Rx mcg-4.5 mcg/actuation aerosol inhaler tiotropium bromide 1.25 2 puff INHALATION QPM #4 g 10/04/20 12/20/20 Rx mcg/actuation mist for inhalation Belly Detox Powder 1 packet PO DIRECTED 12/20/20 12/20/20 History Past Med/Surg History Medical History Asthma inhaler daily/prn Deep vein thrombosis 8 YEARS AGO (S/P SURGERY) Degenerative disc disease Difficulty swallowing solids reason for scheduled EGD History of anesthesia reaction pt states her HR dropped low with knee surgeries--pt states she has had sx since then and done ok with anesthesia History of scarlet fever at age 11 Hyperlipidemia Hypertension Left bundle branch block Migraine Morbid obesity with BMI of 45.0-49.9, adult Osteoarthritis Sleep apnea CPAP Surgical History Fusion of spine CERVICAL FUSION C5-6 LIMITED ROM H/O: hysterectomy Heel spur REMOVED History of cardiac cath 09/2018 (NO STENTS PLACED) SANDEEP History of section X 2 History of colonoscopy History of tooth extraction all teeth removed History of total knee replacement LEFT KNEE X 2 RT KNEE Nausea and vomiting after administration of anesthetic agent S/P appendectomy S/P cholecystectomy S/P epidural steroid injection SI JOINT INJECTION HISTORY Family History Mother Diabetes Slow to wake up after anesthesia Father Diabetes Other Cancer Gallbladder disease Heart disease Hypertension Denies family history of Tuberculosis Allergies Emphysema, unspecified Lung disease Asthma Social History Smoking Status: Former smoker Tobacco Type: Cigarettes packs per day: 0.5; Years Smoked: 1; Number of Years Since Quit: 44; Second Hand Exposure: Yes (father smoked); Hx Alcohol Use: No Hx Substance Use: No Preferred Language: [place] Communication Ability: Effective 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 Beliefs That Will Affect Care: None Current Living Situation: Family Current Living Situation Comment: Lives with and son Other Information That Helps Us Care for You: No Feels Safe at Home: Yes Safety Concerns: Feels Safe At This Time Assistive Devices: Glasses Review of Systems Review of Systems: REVIEW OF SYSTEMS: Constitutional: No fever, sweats or chills Eyes: No diplopia, no worsening or blurred vision ENT: normal hearing, no trouble swallowing Respiratory: No cough, sputum, dyspnea at rest or on exertion Cardiovascular: (+) chest pain, tightness or palpitations Abdomen: No pain, nausea, vomiting, diarrhea or constipation Musculoskeletal: No joint pain, calf pain, swelling Neurologic: No weakness, numbness/tingling, or balance problems Psychiatric: No anxiety or depression Skin: No rash or itch Physical Exam Physical Exam: PHYSICAL EXAM: General: awake, alert, no apparent distress Head: Normocephalic, atraumatic ENT: PERRL, EOMI, no pharyngeal exudate, mucous membranes moist Neuro: AAO x 3, speech clear and appropriate, strength intact bilaterally 5/5, sensation intact and equal all extremities and dermatomes, no pronator drift Chest: equal rise and fall of the chest, no accessory muscle use, no heaves or thrills, Clear to auscultation, on room air, Cardiac: Regular rate and rhythm, telemetry reviewed 55-64 NSR, skin warm dry, cap refill <3 seconds, peripheral pulses +2 no JVD, no murmur, trace lower extremity edema GI: NABS x 4 quadrants, soft, nontender to palpation, no rebound, guarding or tenderness : Spontaneously voiding, no pain, no CVA tenderness, Extremities: Normal inspection, no peripheral edema or erythema, calfs nontender to palpation Psych: Normal mood and affect Skin: no rash or erythema Results & Data Results & Data ([facility]) Vital Signs (Past 12 Hours) Vital Signs Temp Pulse Pulse Resp BP BP Pulse Ox 12/20/20 12:30 53 L 11 L 144/64 H 96 12/20/20 12:01 54 L 16 97 12/20/20 12:00 55 L 15 126/60 97 12/20/20 11:30 60 20 98 12/20/20 11:01 58 L 15 139/67 12/20/20 11:00 57 L 16 12/20/20 10:39 54 L 15 12/20/20 10:38 55 L 14 193/91 H 12/20/20 10:31 52 L 15 174/83 H 12/20/20 10:30 49 L 15 12/20/20 10:01 52 L 14 179/85 H 12/20/20 10:00 50 L 14 12/20/20 09:32 51 L 13 195/91 H 12/20/20 09:30 53 L 20 12/20/20 09:15 58 L 18 169/81 H 98 12/20/20 09:12 52 L 15 169/71 H 12/20/20 09:05 54 L 19 12/20/20 08:54 36.0 C L 59 L 18 192/97 H 100 Laboratory Results Abnormal lab results 12/20/20 12/20/20 Range/Units 09:07 09:07 MPV 10.5 H (7.4-10.4) fL Chloride 108 H (98-107) mmol/L Diagnostic Findings Chest X-Ray 12/20/20 09:03 XR chest 1V portable CLINICAL HISTORY: chest pain COMPARISON STUDY: Chest radiograph September 03, 2018. FINDINGS: Anterior cervical spine fusion is partially imaged. There is no pneumothorax or pleural effusion. There is mild enlargement of the cardiac silhouette. Mild interstitial prominence is noted. Apparent hazy bibasilar opacities are probably artifactual. IMPRESSION: Pulmonary vascular congestion with possible mild pulmonary edema. Electronically signed by: Kevin Fernandez M.D. 12/20/2020 9:38 AM Abdomen/Pelvis CTA 12/20/20 10:23 CT ANGIOGRAM OF THE CHEST COMBO; CT ANGIOGRAM OF THE ABDOMEN AND PELVIS CLINICAL HISTORY: Atypical chest pain radiating into the back. COMPARISON STUDY: Chest x-ray dated 12/20/2020. Chest CT dated 12/10/2017. Lumbar spine radiographs dated 09/22/2018. TECHNIQUE: Unenhanced CT scan of the chest is performed. Following the IV administration of 115 cc of Optiray 350, CT angiogram of the chest, abdomen, and pelvis was performed from the thoracic inlet to the proximal femora. Images are reviewed in the axial, sagittal, and coronal planes. 3-D MIPS images are created and assessed. IV contrast was administered without complication. A dose lowering technique was utilized adhering to the principles of ALARA. CT DOSE: 3001.91 mGy.cm FINDINGS: CHEST: Thyroid: Imaged portions of the thyroid gland are normal in size and attenuation. Thoracic aorta: No intramural hematoma is identified on the unenhanced series. There is mild ectasia of the ascending thoracic aorta which measures up to 3.8 cm in diameter. The remainder of the thoracic aorta is normal in caliber, and the arch demonstrates standard 3-vessel anatomy. No aneurysm or dissection is seen. The arch vessels are widely patent. Pulmonary vasculature: The pulmonary trunk is normal in caliber. There are no filling defects identified in the main, lobar, or segmental pulmonary vessels to indicate pulmonary embolus. Heart: The heart is top normal in size and without pericardial effusion. There are coronary artery calcifications. Lungs and pleural spaces: There is no airspace consolidation or pleural effusion. The trachea and central airways are clear. Mediastinum: There is no mediastinal lymphadenopathy. Mohini: Clear. Axillae: There is no axillary lymphadenopathy. Bony thorax: The skeletal structures are osteopenic. Degenerative change is noted throughout the thoracic spine. There is high-grade central canal stenosis at T11-T12 secondary to bulky facet arthropathy. No destructive bony lesions are identified. ABDOMEN AND PELVIS: Liver: The contrast-enhanced liver is normal in size and contour. The liver demonstrates diffusely diminished attenuation consistent with hepatic steatosis. There is no intrahepatic biliary ductal dilatation. The main portal veins appear patent. Gallbladder: Surgically absent noting clips in the gallbladder fossa. Spleen: Normal in size and attenuation noting heterogeneous arterial phase enhancement. Pancreas: Unremarkable. Adrenal glands: Unremarkable. Kidneys: The contrast enhanced kidneys are normal in size and without hydronephrosis. The kidneys enhance symmetrically. Abdominal aorta and iliac arteries: The abdominal aorta is normal in course and caliber. No dissection is seen. The iliac arteries are widely patent bilaterally. Major branches of the abdominal aorta: The celiac trunk, superior mesenteric, and inferior mesenteric arteries are widely patent. Hepatic arterial anatomy is conventional. The splenic vein is patent.Single bilateral renal arteries are widely patent. Stomach and bowel: There is a small hiatal hernia. There is mild colonic diverticulosis without CT evidence of acute diverticulitis. No bowel obstruction is identified. The appendix is not visualized. Peritoneum: There is no intraperitoneal free air or abdominal ascites. There is a fat-containing umbilical hernia. Lymphadenopathy: None. Pelvic viscera: The bladder is normal as visualized. The uterus is surgically absent. No adnexal lesion is seen. Skeletal structures: The skeletal structures are osteopenic. Minimal spondylotic changes noted in the lumbar spine. No destructive bony lesions are seen. Sclerotic change is noted in the sacroiliac joints and pubic symphysis. IMPRESSION: 1. There is mild ectasia of the ascending thoracic aorta which is similar to the 12/10/2017 examination. 2. The thoracic aorta is otherwise normal in appearance. No dissection is seen. 3. There is no evidence of pulmonary embolus in the main, lobar, or segmental pulmonary arteries. 4. The lungs and pleural spaces are clear. 5. Unremarkable CT angiogram of the abdominal aorta and its major branches. 6. There are no acute infectious or inflammatory findings in the abdomen or pelvis. 7. There is high-grade central canal stenosis at T11-T12 secondary to bulky calcified facet arthropathy. 8. Hepatic steatosis. 9. Mild colonic diverticulosis without CT evidence of acute diverticulitis. 10. Additional findings as above. Electronically signed by: Liang Perea M.D. 12/20/2020 11:18 AM Chest CTA 12/20/20 10:23 CT ANGIOGRAM OF THE CHEST COMBO; CT ANGIOGRAM OF THE ABDOMEN AND PELVIS CLINICAL HISTORY: Atypical chest pain radiating into the back. COMPARISON STUDY: Chest x-ray dated 12/20/2020. Chest CT dated 12/10/2017. Lumbar spine radiographs dated 09/22/2018. TECHNIQUE: Unenhanced CT scan of the chest is performed. Following the IV administration of 115 cc of Optiray 350, CT angiogram of the chest, abdomen, and pelvis was performed from the thoracic inlet to the proximal femora. Images are reviewed in the axial, sagittal, and coronal planes. 3-D MIPS images are created and assessed. IV contrast was administered without complication. A dose lowering technique was utilized adhering to the principles of ALARA. CT DOSE: 3001.91 mGy.cm FINDINGS: CHEST: Thyroid: Imaged portions of the thyroid gland are normal in size and attenuation. Thoracic aorta: No intramural hematoma is identified on the unenhanced series. There is mild ectasia of the ascending thoracic aorta which measures up to 3.8 cm in diameter. The remainder of the thoracic aorta is normal in caliber, and the arch demonstrates standard 3-vessel anatomy. No aneurysm or dissection is seen. The arch vessels are widely patent. Pulmonary vasculature: The pulmonary trunk is normal in caliber. There are no filling defects identified in the main, lobar, or segmental pulmonary vessels to indicate pulmonary embolus. Heart: The heart is top normal in size and without pericardial effusion. There are coronary artery calcifications. Lungs and pleural spaces: There is no airspace consolidation or pleural ef fusion. The trachea and central airways are clear. Mediastinum: There is no mediastinal lymphadenopathy. Mohini: Clear. Axillae: There is no axillary lymphadenopathy. Bony thorax: The skeletal structures are osteopenic. Degenerative change is noted throughout the thoracic spine. There is high-grade central canal stenosis at T11-T12 secondary to bulky facet arthropathy. No destructive bony lesions are identified. ABDOMEN AND PELVIS: Liver: The contrast-enhanced liver is normal in size and contour. The liver demonstrates diffusely diminished attenuation consistent with hepatic steatosis. There is no intrahepatic biliary ductal dilatation. The main portal veins appear patent. Gallbladder: Surgically absent noting clips in the gallbladder fossa. Spleen: Normal in size and attenuation noting heterogeneous arterial phase enhancement. Pancreas: Unremarkable. Adrenal glands: Unremarkable. Kidneys: The contrast enhanced kidneys are normal in size and without hydronephrosis. The kidneys enhance symmetrically. Abdominal aorta and iliac arteries: The abdominal aorta is normal in course and caliber. No dissection is seen. The iliac arteries are widely patent bilaterally. Major branches of the abdominal aorta: The celiac trunk, superior mesenteric, and inferior mesenteric arteries are widely patent. Hepatic arterial anatomy is conventional. The splenic vein is patent.Single bilateral renal arteries are widely patent. Stomach and bowel: There is a small hiatal hernia. There is mild colonic diverticulosis without CT evidence of acute diverticulitis. No bowel obstruction is identified. The appendix is not visualized. Peritoneum: There is no intraperitoneal free air or abdominal ascites. There is a fat-containing umbilical hernia. Lymphadenopathy: None. Pelvic viscera: The bladder is normal as visualized. The uterus is surgically absent. No adnexal lesion is seen. Skeletal structures: The skeletal structures are osteopenic. Minimal spondylotic changes noted in the lumbar spine. No destructive bony lesions are seen. Sclerotic change is noted in the sacroiliac joints and pubic symphysis. IMPRESSION: 1. There is mild ectasia of the ascending thoracic aorta which is similar to the 12/10/2017 examination. 2. The thoracic aorta is otherwise normal in appearance. No dissection is seen. 3. There is no evidence of pulmonary embolus in the main, lobar, or segmental pulmonary arteries. 4. The lungs and pleural spaces are clear. 5. Unremarkable CT angiogram of the abdominal aorta and its major branches. 6. There are no acute infectious or inflammatory findings in the abdomen or pelvis. 7. There is high-grade central canal stenosis at T11-T12 secondary to bulky calcified facet arthropathy. 8. Hepatic steatosis. 9. Mild colonic diverticulosis without CT evidence of acute diverticulitis. 10. Additional findings as above. Electronically signed by: Liang Perea M.D. 12/20/2020 11:18 AM Medications Administered Discontinued Medications Famotidine (Famotidine 20mg/5ml Iv Push) 20 mg IV ONE STA Stop: 12/20/20 10:24 Last Admin: 12/20/20 10:38 Dose: 20 mg Documented by: [id number] Acetaminophen (Ofirmev) 1,000 mg in 100 mls @ 400 mls/hr IV NOW STA Stop: 12/20/20 12:11 Last Infusion: 12/20/20 12:15 Dose: 0 mls/hr Documented by: [id number] Admin: 12/20/20 12:13 Dose: 400 mls/hr Documented by: [id number] Ioversol (Optiray 350 500ml) 115 ml IV ONCE ONE Stop: 12/20/20 10:46 Last Admin: 12/20/20 10:46 Dose: 115 ml Documented by: [id number] Morphine Sulfate (Morphine Sulfate 4 Mg/Ml 1 Ml Carp\Vial) 4 mg IV NOW STA Stop: 12/20/20 11:58 Last Admin: 12/20/20 12:13 Dose: 4 mg Documented by: [id number] Nitroglycerin (Nitroglycerin 2% Ointment 30gm Tube) 1 inch EXT NOW STA Stop: 12/20/20 10:15 Last Admin: 12/20/20 10:19 Dose: 1 inch Documented by: [id number] ECG Additional Comments: Sinus bradycardia Otherwise normal ECG When compared with ECG of 03-SEP-2018 14:48, Left bundle branch block is no longer Present Code Status & VTE Plan Code Status CODE: FULL VTE: SCD's, Lovenox Supervising Physician Co-Signing Physician Notes Patient was seen and examined independently I discussed the case with Mert GIL I reviewed pertinent past medical social family history and also the plan of care and agree with the plan of care. Patient arrived with chest pain relieved by nitroglycerin. Negative CT angiogram nonacute EKG. Found to be Covid positive testing without distinct pulmonary symptoms or hypoxemia Examination is without respiratory distress or abnormal lung sounds Patiently brought in for cardiac evaluation Covid may limit further diagnostic testing unless she has high pretest probability for concern for unstable angina Any exceptions will be noted below PG Care Time/CCT Total # of Minutes Spent Total Time Spent with Patient: Total time spent is greater than 50% in coordination of care (as documented) at patient's floor/unit and/or counseling patient: Coding Level of Care Code 54331 OBS Care - Level 2 Diagnoses COVID-19 U07.1 Chest pain of uncertain etiology R07.9 HTN (hypertension) I10 Hypertension type: essential hypertension Exertional shortness of breath R06.02 Asthma J45.40 Asthma complication type: unspecified Asthma persistence: persistent Asthma severity: moderate Morbid obesity E66.01 SOPHIE (obstructive sleep apnea) G47.33 (1) HTN (hypertension) Hypertension type: essential hypertension Qualified Code(s): I10 - Essential (primary) hypertension (2) Asthma Asthma complication type: unspecified Asthma persistence: persistent Asthma severity: moderate Qualified Code(s): J45.40 - Moderate persistent asthma, uncomplicated
[2020-12-20] MEDS ORDERED: DICLOFENAC SOD 1% GEL 100 GM TUBE EXT PRN (16:34)
[2020-12-20] MEDS ORDERED: POLYETHYLENE (MIRALAX) 17 GM PACK PO PRN (16:34)
[2020-12-20] MEDS ORDERED: ONDANSETRON INJ 2 MG/ML 2 ML VIAL IV PRN (16:34)
[2020-12-20] MEDS ORDERED: ACETAMINOPHEN 325 MG TAB PO PRN (16:34)
[2020-12-20] MEDS ORDERED: ALBUTEROL HFA 8 GM INHALER INH PRN (16:41)
[2020-12-20] MEDS ORDERED: LORATADINE 10 MG TAB PO PRN (16:44)
--- NOTE | 2020-12-20 18:40 | Electrocardiogram Report ---
Test Reason : Blood Pressure : / mmHG Vent. Rate : 058 BPM Atrial Rate : 058 BPM P-R Int : 158 ms QRS Dur : 086 ms QT Int : 440 ms P-R-T Axes : 051 040 063 degrees QTc Int : 431 ms Sinus bradycardia Otherwise normal ECG When compared with ECG of 03-SEP-2018 14:48, Left bundle branch block is no longer Present Confirmed by Arnaud Mckay ([id number]) on 12/20/2020 6:39:27 PM Referred By: REFERRED SELF Confirmed By:Edson Mckay
[2020-12-20 18:52] LABS: Lyme Ab IgG w/WB Rflx Negative (Negative); Lyme Ab IgM w/WB Rflx Negative (Negative)
[2020-12-20] MEDS ORDERED: UMECLIDINIUM BROMIDE 62.5MCG/BLISTER 7 PUFFS/INHALER INH SCH (21:00)
[2020-12-20 21:42] LABS: Fibrinogen 314 mg/dl (184-400)
[2020-12-21 07:06] LABS: Basophils # (auto) 0.01 K/uL (0-0.2); Basophils % (auto) 0.1 %; Eosinophils # (auto) 0.18 K/uL (0-0.5); Eosinophils % (auto) 2.5 %; Hematocrit (blood only) 42.4 % (37-47); Hemoglobin 14.2 g/dL (12.0-16.0); Immature Granulocytes # (auto) 0.02 K/uL (0.00-0.02); Immature Granulocytes % (auto) 0.3 %; Lymphocytes # (auto) 1.57 K/uL (1.2-3.4); Lymphocytes % (auto) 22.2 %; Mean Corpuscular Hemoglobin 30.5 pg (25-34); Mean Corpuscular Hgb Conc 33.5 g/dL (32-36); Mean Platelet Volume 10.4 fL (7.4-10.4); Monocytes # (auto) 0.46 K/uL (0.11-0.59); Monocytes % (auto) 6.5 %; Neutrophils # (auto) 4.82 K/uL (1.4-6.5); Neutrophils % (auto) 68.4 %; Platelet Count 167 K/uL (130-400); RDW Coefficient of Variation 13.5 % (11.5-14.5); RDW Standard Deviation 44.2 fL (36.4-46.3); Red Blood Count 4.66 M/uL (4.2-5.4); White Blood Count 7.06 K/uL (4.8-10.8)
[2020-12-21 07:41] LABS: BUN Creatinine Ratio 19.8 (10-20); C Reactive Protein 0.73 mg/dl (0-0.29); Calcium 8.8 mg/dl (8.5-10.1); Creatinine Clr Calc Pharmacy 81.6 ml/min; Est GFR (African American) 75.7 ml/min; Est GFR (Non-African American) 65.3 ml/min; Magnesium 2.2 mg/dl (1.8-2.4); Potassium 3.9 mmol/L (3.5-5.1)
[2020-12-21 07:46] LABS: Ferritin 119.2 ng/ml (8-388)
[2020-12-21] MEDS ORDERED: FLUTICASONE/VILANTEROL 200/25MCG 14 PUFFS/INHALER INH SCH (09:00)
[2020-12-21] MEDS ORDERED: lisinopril 20 MG TAB PO SCH (09:00)
[2020-12-21] MEDS ORDERED: BUMETANIDE 1 MG TAB PO SCH (09:00)
[2020-12-21] MEDS ORDERED: FLUTICASONE PROPIONATE NA SPR 16 GM BTL NAE SCH (09:00)
[2020-12-21] MEDS ORDERED: ENOXAPARIN INJ 40 MG/0.4 ML SYR SQ SCH (09:00)
--- NOTE | 2020-12-21 11:38 | Electrocardiogram Report ---
Test Reason : Blood Pressure : / mmHG Vent. Rate : 051 BPM Atrial Rate : 051 BPM P-R Int : 180 ms QRS Dur : 092 ms QT Int : 438 ms P-R-T Axes : 053 028 059 degrees QTc Int : 403 ms Sinus bradycardia Otherwise normal ECG When compared with ECG of 20-DEC-2020 09:00, No significant change was found Confirmed by Arnaud Mckay ([id number]) on 12/21/2020 11:37:57 AM Referred By: REFERRED SELF Confirmed By:Edson Mckay
--- NOTE | 2020-12-21 14:54 | Discharge Summary ---
Date of Service December 21, 2020 Admission HPI Per Admitting Provider 65 YOF with past medical history of arthritis, HTN, HLD, LBBB, obesity, asthma. Patient comes to the emergency room today for complaints of left sided chest pain that feels like someone is pushing on her chest. This has been going on for the past 3 days. She has not noticed that this pain occurs with any activity or ambulation. She also endorses that this morning it went to her jaw and lasted 10 minutes and went away. She denies any diaphoresis, nausea/vomiting, or increase in her fatigue. In the emergency room she had CTA fo the chest, abdomen/pelvis done, CXR. She had a ECG that shows resolution of her LBBB that was present in 2019. Initial Troponin I at 0900 was <0.015. She was given 4 mg of morphine that seems to have relived her pain at current, as well as 1 inch of nitropaste. She got a dose of famotidine IV, which she did not think helped. She had a Dobutamine stress test done in 2018 that obtained max METS and was normal. ECHO in 2018 EF 55-60% normal mitral and aortic valves. She feels her breathing is actually improved from her baseline dyspnea. Patient is currently having no symptoms, will be observed to trend troponin and ECG. During admissions process, she was noted to have a positive COVID test. She has received 2 doses of her vaccine, that was completed in November. Principal Diagnosis Atypical Chest pain-noncardiac, likely GI related COVID-19 Discharge Exam Constitutional WD/WN, vitals as above Eyes + anicteric sclerae Neck trachea midline, no thyromegaly Respiratory normal respiratory effort, lungs clear to auscultation Cardiovascular RRR, no murmur, no edema Chest (Breasts) Chest: normal inspection of chest Gastrointestinal (Abdomen) normal bowel sounds, soft, nontender, no hepatosplenomegaly Musculoskeletal Extremities: extremities normal to inspection; no cyanosis and no clubbing Skin no rashes, warm and dry Neurologic moves all extremities and awake; no focal motor deficits Psychiatric A+Ox3, euthymic affect Lymphatic no lymphedema Discharge Data Allergies Allergy/AdvReac Type Severity Reaction Status Date / Time No Known Allergies Allergy Verified 12/20/20 09:49 Consultations 12/20/20 12:58 ED Decision to Admit Stat Ordered Studies 12/20/20 10:23 CT angio abdomen pelvis w con Stat CT angio chest dissec wo/w con Stat Chest X-Ray 12/20/20 09:03 XR chest 1V portable CLINICAL HISTORY: chest pain COMPARISON STUDY: Chest radiograph September 03, 2018. FINDINGS: Anterior cervical spine fusion is partially imaged. There is no p neumothorax or pleural effusion. There is mild enlargement of the cardiac silhouette. Mild interstitial prominence is noted. Apparent hazy bibasilar opacities are probably artifactual. IMPRESSION: Pulmonary vascular congestion with possible mild pulmonary edema. ACT 112: Negative or not required by law. Electronically signed by: Kevin Fernandez M.D. 12/20/2020 9:38 AM Abdomen/Pelvis CTA 12/20/20 10:23 CT ANGIOGRAM OF THE CHEST COMBO; CT ANGIOGRAM OF THE ABDOMEN AND PELVIS CLINICAL HISTORY: Atypical chest pain radiating into the back. COMPARISON STUDY: Chest x-ray dated 12/20/2020. Chest CT dated 12/10/2017. Lumbar spine radiographs dated 09/22/2018. TECHNIQUE: Unenhanced CT scan of the chest is performed. Following the IV administration of 115 cc of Optiray 350, CT angiogram of the chest, abdomen, and pelvis was performed from the thoracic inlet to the proximal femora. Images are reviewed in the axial, sagittal, and coronal planes. 3-D MIPS images are created and assessed. IV contrast was administered without complication. A dose lowering technique was utilized adhering to the principles of ALARA. CT DOSE: 3001.91 mGy.cm FINDINGS: CHEST: Thyroid: Imaged portions of the thyroid gland are normal in size and attenuation. Thoracic aorta: No intramural hematoma is identified on the unenhanced series. There is mild ectasia of the ascending thoracic aorta which measures up to 3.8 cm in diameter. The remainder of the thoracic aorta is normal in caliber, and the arch demonstrates standard 3-vessel anatomy. No aneurysm or dissection is seen. The arch vessels are widely patent. Pulmonary vasculature: The pulmonary trunk is normal in caliber. There are no filling defects identified in the main, lobar, or segmental pulmonary vessels to indicate pulmonary embolus. Heart: The heart is top normal in size and without pericardial effusion. There are coronary artery calcifications. Lungs and pleural spaces: There is no airspace consolidation or pleural effusion. The trachea and central airways are clear. Mediastinum: There is no mediastinal lymphadenopathy. Mohini: Clear. Axillae: There is no axillary lymphadenopathy. Bony thorax: The skeletal structures are osteopenic. Degenerative change is noted throughout the thoracic spine. There is high-grade central canal stenosis at T11-T12 secondary to bulky facet arthropathy. No destructive bony lesions are identified. ABDOMEN AND PELVIS: Liver: The contrast-enhanced liver is normal in size and contour. The liver demonstrates diffusely diminished attenuation consistent with hepatic steatosis. There is no intrahepatic biliary ductal dilatation. The main portal veins appear patent. Gallbladder: Surgically absent noting clips in the gallbladder fossa. Spleen: Normal in size and attenuation noting heterogeneous arterial phase enhancement. Pancreas: Unremarkable. Adrenal glands: Unremarkable. Kidneys: The contrast enhanced kidneys are normal in size and without hydronephrosis. The kidneys enhance symmetrically. Abdominal aorta and iliac arteries: The abdominal aorta is normal in course and caliber. No dissection is seen. The iliac arteries are widely patent bilaterally. Major branches of the abdominal aorta: The celiac trunk, superior mesenteric, and inferior mesenteric arteries are widely patent. Hepatic arterial anatomy is conventional. The splenic vein is patent.Single bilateral renal arteries are widely patent. Stomach and bowel: There is a small hiatal hernia. There is mild colonic diverticulosis without CT evidence of acute diverticulitis. No bowel obstruction is identified. The appendix is not visualized. Peritoneum: There is no intraperitoneal free air or abdominal ascites. There is a fat-containing umbilical hernia. Lymphadenopathy: None. Pelvic viscera: The bladder is normal as visualized. The uterus is surgically absent. No adnexal lesion is seen. Skeletal structures: The skeletal structures are osteopenic. Minimal spondylotic changes noted in the lumbar spine. No destructive bony lesions are seen. Sclerotic change is noted in the sacroiliac joints and pubic symphysis. IMPRESSION: 1. There is mild ectasia of the ascending thoracic aorta which is similar to the 12/10/2017 examination. 2. The thoracic aorta is otherwise normal in appearance. No dissection is seen. 3. There is no evidence of pulmonary embolus in the main, lobar, or segmental pulmonary arteries. 4. The lungs and pleural spaces are clear. 5. Unremarkable CT angiogram of the abdominal aorta and its major branches. 6. There are no acute infectious or inflammatory findings in the abdomen or pelvis. 7. There is high-grade central canal stenosis at T11-T12 secondary to bulky calcified facet arthropathy. 8. Hepatic steatosis. 9. Mild colonic diverticulosis without CT evidence of acute diverticulitis. 10. Additional findings as above. ACT 112: Negative or not required by law. Electronically signed by: Liang Perea M.D. 12/20/2020 11:18 AM Chest CTA 12/20/20 10:23 CT ANGIOGRAM OF THE CHEST COMBO; CT ANGIOGRAM OF THE ABDOMEN AND PELVIS CLINICAL HISTORY: Atypical chest pain radiating into the back. COMPARISON STUDY: Chest x-ray dated 12/20/2020. Chest CT dated 12/10/2017. Lumbar spine radiographs dated 09/22/2018. TECHNIQUE: Unenhanced CT scan of the chest is performed. Following the IV administration of 115 cc of Optiray 350, CT angiogram of the chest, abdomen, and pelvis was performed from the thoracic inlet to the proximal femora. Images are reviewed in the axial, sagittal, and coronal planes. 3-D MIPS images are created and assessed. IV contrast was administered without complication. A dose lowering technique was utilized adhering to the principles of ALARA. CT DOSE: 3001.91 mGy.cm FINDINGS: CHEST: Thyroid: Imaged portions of the thyroid gland are normal in size and attenuation. Thoracic aorta: No intramural hematoma is identified on the unenhanced series. There is mild ectasia of the ascending thoracic aorta which measures up to 3.8 cm in diameter. The remainder of the thoracic aorta is normal in caliber, and the arch demonstrates standard 3-vessel anatomy. No aneurysm or dissection is seen. The arch vessels are widely patent. Pulmonary vasculature: The pulmonary trunk is normal in caliber. There are no filling defects identified in the main, lobar, or segmental pulmonary vessels to indicate pulmonary embolus. Heart: The heart is top normal in size and without pericardial effusion. There are coronary artery calcifications. Lungs and pleural spaces: There is no airspace consolidation or pleural effusion. The trachea and central airways are clear. Mediastinum: There is no mediastinal lymphadenopathy. Mohini: Clear. Axillae: There is no axillary lymphadenopathy. Bony thorax: The skeletal structures are osteopenic. Degenerative change is noted throughout the thoracic spine. There is high-grade central canal stenosis at T11-T12 secondary to bulky facet arthropathy. No destructive bony lesions are identified. ABDOMEN AND PELVIS: Liver: The contrast-enhanced liver is normal in size and contour. The liver demonstrates diffusely diminished attenuation consistent with hepatic steatosis. There is no intrahepatic biliary ductal dilatation. The main portal veins appear patent. Gallbladder: Surgically absent noting clips in the gallbladder fossa. Spleen: Normal in size and attenuation noting heterogeneous arterial phase enhancement. Pancreas: Unremarkable. Adrenal glands: Unremarkable. Kidneys: The contrast enhanced kidneys are normal in size and without hydronephrosis. The kidneys enhance symmetrically. Abdominal aorta and iliac arteries: The abdominal aorta is normal in course and caliber. No dissection is seen. The iliac arteries are widely patent bilaterally. Major branches of the abdominal aorta: The celiac trunk, superior mesenteric, and inferior mesenteric arteries are widely patent. Hepatic arterial anatomy is conventional. The splenic vein is patent.Single bilateral renal arteries are widely patent. Stomach and bowel: There is a small hiatal hernia. There is mild colonic diverticulosis without CT evidence of acute diverticulitis. No bowel obstruction is identified. The appendix is not visualized. Peritoneum: There is no intraperitoneal free air or abdominal ascites. There is a fat-containing umbilical hernia. Lymphadenopathy: None. Pelvic viscera: The bladder is normal as visualized. The uterus is surgically absent. No adnexal lesion is seen. Skeletal structures: The skeletal structures are osteopenic. Minimal spondylotic changes noted in the lumbar spine. No destructive bony lesions are seen. Sclerotic change is noted in the sacroiliac joints and pubic symphysis. IMPRESSION: 1. There is mild ectasia of the ascending thoracic aorta which is similar to the 12/10/2017 examination. 2. The thoracic aorta is otherwise normal in appearance. No dissection is seen. 3. There is no evidence of pulmonary embolus in the main, lobar, or segmental pulmonary arteries. 4. The lungs and pleural spaces are clear. 5. Unremarkable CT angiogram of the abdominal aorta and its major branches. 6. There are no acute infectious or inflammatory findings in the abdomen or pelvis. 7. There is high-grade central canal stenosis at T11-T12 secondary to bulky calcified facet arthropathy. 8. Hepatic steatosis. 9. Mild colonic diverticulosis without CT evidence of acute diverticulitis. 10. Additional findings as above. ACT 112: Negative or not required by law. Electronically signed by: Liang Perea M.D. 12/20/2020 11:18 AM Hospital Course (1) Chest pain of uncertain etiology: As above, does not appear cardiac in nature - serial troponin negative x 3 ECG with sinus julia, LBBB is now resolved Pain was coming and going for a few days and lasted hours at a time. -discussed her care with her Global Chief Experience Officer who said sh ehad a normal cath in 2019 and did not need stress test here with which I agree Perhaps this is related to COVID? CTA Chest negative, not hypoxic. -trial of Protonix 40mg daily x 2 weeks -stable for dc to home (2) COVID-19: Asymptomatic in the setting of receiving her full vaccine in November - CT scan of the chest shows no pulmonary process - Supportive care as it arises - CRP, Ferritin, Fibrinogen all normal except minor elevation in CRP remains 95% on RA, has a mild headache, no fevers, no cough or resp symptoms. No one in her family is sick but is going to get tested -should hopefully end up with a mild case given vaccination status and should remain quarantined for 10 total days (3) HTN (hypertension): Well controlled - Continue Bumex - Continue lisinopril (4) Exertional shortness of breath: Patient with non-specific PFT, normal CT of the lungs, normal DLCO. - She feels improved with the addition of spiriva it appears - Continue multimodal treatment (5) Asthma: As above (6) Morbid obesity: Might benefit from referral through PCP to Dr. Landry for obesity managem ent by PCP (7) SOPHIE (obstructive sleep apnea): Continue with CPAP 4 CM H20 (8) Thoracic spinal stenosis: noted on CT abd/pel with severe spinal stenosis at T11-12 Pt does report pain in legs but no weakness. Does report occasionally her legs give out. SH eis able to walk. No bowel/bladder symptoms Follows with Pain Management Dr. Wells -advised f/u with it technical specialist, perhaps Dr. Barrientos at [facility] [place] as an outpt- discussed with pt on day of discharge (9) DVT prophylaxis: Lovenox SQ Dispo-stable for dc to home Total Time Total Time Spent Total Time Spent (In Minutes): 35 min Total Time Includes: Examination of the Patient, Discharge Planning and Medication Reconciliation Discharge Plan Discharge Items Patient Disposition: Home - Self-Care Reason For Visit: CHEST PAIN Discharge Diagnosis: Chest pain-noncardiac, Suspect acid reflux Condition on Discharge: Good Activity: Resume your previous activity Non-emergency contact: Primary Care Provider Call non-emergency contact if: you have any medication questions, your symptoms worsen, your pain is not controlled, your pain is worsening, your pain is unusual for you and you have a fever Follow-up/Referrals: Alma Christian CRNP [Primary Care Provider] - (Please follow up within 1-2 weeks.) Diet: Heart Healthy Addtl Attending Provider Instructions: You were admitted with chest pain and had a complete workup for heart and lung issues that was normal. This may be from acid reflux and you should take Protonix 40mg once daily x a 2 week course. You also tested positive for COVID- 19 despite being vaccinated. Hopefully, you will have a mild course given that you are already vaccinated. You can take Tylenol as needed for headache. If you develop shortness of breath, cough, fevers/chills, feel lightheaded, or have any other acute concerns, please return to the hospital. You should remain on quarantine at your home for 9 more days. Please follow up with your PCP within 1-2 weeks. Pending Studies at Discharge: No Stand-Alone Forms: [facility], Smoking Cessation Medications and DC Order Prescriptions: New acetaminophen 325 mg Tablet 650 mg PO Q4H PRN (Reason: fever or pain) Qty: 30 RF: 0 pantoprazole [Protonix] 40 mg tablet,delayed release (DR/EC) 40 mg PO DAILY Qty: 14 RF: 0 Continued budesonide-formoterol [Symbicort] 160-4.5 mcg/actuation HFA aerosol inhaler 2 inh INH BID Qty: 10.2 RF: 5 Spiriva Respimat 1.25 mcg/actuation mist 2 puff inhalation QPM Qty: 4 RF: 5 albuterol sulfate [ProAir HFA] 90 mcg/actuation HFA aerosol inhaler 2 inh INH Q6H PRN (Reason: shortness of breath or wheezing) Qty: 18 RF: 3 loratadine 10 mg capsule 10 mg PO DAILY PRN (Reason: Allergy Symptoms) RF: 0 fluticasone propionate 50 mcg/actuation spray,suspension 1 sprays INTNAS QAM RF: 0 bumetanide 1 mg tablet 1 mg PO QAM RF: 0 nitroglycerin [Nitrostat] 0.4 mg Tablet, Sublingual 0.4 mg Sublingual UD PRN (Reason: Chest Pain) RF: 0 diclofenac sodium [Voltaren] 1 % gel 1 applic topical UD PRN (Reason: Pain) RF: 0 Bioflex 740-23-97-40 mg Tablet 1 tab PO QAM RF: 0 lisinopril 5 mg Tablet 20 mg PO QAM RF: 0 Belly Detox Powder 1 packet PO DIRECTED RF: 0 Discharge Orders: Discharge Order (Routine); Ordered 12/21/20 Ordered By: Tennille Lee Admission Data Admit Date/Time: 12/20/20 15:04 Attending Provider: Tennille Lee Admit Provider: Jostin Sheldon Primary Care Provider: Alma Christian Other Providers: Jostin Sheldon Coding Level of Care Code 61858 OBS Care - Discharge Diagnoses Chest pain of uncertain etiology R07.9 COVID-19 U07.1 HTN (hypertension) I10 Hypertension type: essential hypertension Exertional shortness of breath R06.02 Asthma J45.40 Asthma severity: moderate Asthma persistence: persistent Asthma complication type: unspecified Morbid obesity E66.01 SOPHIE (obstructive sleep apnea) G47.33 Thoracic spinal stenosis M48.04 DVT prophylaxis Z29.9
== END 2020-12-21 15:55 | disposition home or self-care (01) ==
LOC: ED 08:50 → 2S 08:50 → SUATTDRO 15:04 → 2S 15:52